=== PATIENT | male | born 1945 | race Caucasian/White ===

== ENCOUNTER 2021-06-15 16:44 | Inpatient (IN) ==
[2021-06-15] MEDS ORDERED: methylPREDNISolone 125 MG/2 ML VIAL IVP ONE (16:49)
[2021-06-15] MEDS ORDERED: 0.9 % Sodium Chloride 1,000 ML IVC ONE (16:49)
[2021-06-15] MEDS ORDERED: Ipratropium/Albuterol Neb 3 ML IH ONE (16:49)
[2021-06-15] MEDS ORDERED: Furosemide 20 MG/2 ML VIAL IVP ONE (17:37)
[2021-06-15 17:47] LABS: Basophils % 0.3 %; Eosinophils # 0.2 K/mcL (0.0-0.6); Eosinophils % 2.2 %; Hematocrit 42.6 % (37.5-50.1); Hemoglobin 12.2 g/dL (12.9-16.9); Immature Granulocytes % 1.2 % (0-4); Lymphocytes # 1.9 K/mcL (0.6-4.6); Lymphocytes % 21.5 %; Mean Corpuscular HGB Conc 28.6 g/dL (31.6-35.5); Mean Corpuscular Volume 104.7 fL (83.0-100.0); Mean Platelet Volume 10.3 fL (9.4-12.4); Monocytes # 0.7 K/mcL (0.0-1.3); Monocytes % 7.6 %; Neutrophils # 5.9 K/mcL (1.6-8.9); Platelet Count 143 K/mcL (140-400); Red Blood Count 4.07 M/mcL (4.19-5.50); Red Cell Distribution Width 12.7 % (11.5-14.5); Segmented Neutrophils % 67.2 %; White Blood Count 8.8 K/mcL (4.3-11.1)
[2021-06-15 18:20] LABS: BUN/Creatinine Ratio 32 (6-26); Blood Urea Nitrogen 23 mg/dL (8-23); Chloride 95 mEq/L (98-107); Glucose 108 mg/dL (70-105); Osmolality,Calculated 300 (280-300); Potassium 4.5 mEq/L (3.5-5.1); Sodium 143 mEq/L (136-145); eGFR For African Americans > 60 (> 60); eGFR For Non-African Americans > 60 (> 60)
[2021-06-15 18:25] LABS: VBG HCO3 49 mEq/L (21-27); VBG PCO2 123 mmHg (41-51); VBG PH 7.21 pH Units (7.32-7.42); VBG PO2 108 mmHg (25-50)
[2021-06-15 18:33] LABS: Troponin I 0.03 ng/mL (< 0.04)
[2021-06-15 19:33] LABS: Adenovirus Not Detected (Not Detect); Bordetella Pertussis Not Detected (Not Detect); Chlamydophila pneumoniae Not Detected (Not Detect); Coronavirus 229E Not Detected (Not Detect); Coronavirus HKU1 Not Detected (Not Detect); Coronavirus NL63 Not Detected (Not Detect); Coronavirus OC43 Not Detected (Not Detect); Human Metapneumovirus Not Detected (Not Detect); Human Rhinovirus/Enterovirus Not Detected (Not Detect); Influenza A Subtype 2009 H1 Not Detected (Not Detect); Influenza B Not Detected (Not Detect); Mycoplasma pneumoniae Not Detected (Not Detect); Parainfluenza Virus 1 Not Detected (Not Detect); Parainfluenza Virus 2 Not Detected (Not Detect); Parainfluenza Virus 3 Not Detected (Not Detect); Parainfluenza Virus 4 Not Detected (Not Detect); Respiratory Syncytial Virus Not Detected (Not Detect); SARS-CoV-2 Not Detected (Not Detect)
[2021-06-15] MEDS ORDERED: Melatonin 3 MG TABLET PO PRN (19:49)
[2021-06-15] MEDS ORDERED: Naloxone 0.4 MG/ML INJ IVP PRN (19:49)
[2021-06-15] MEDS ORDERED: *HR* Promethazine 25 MG/ML VIAL IM PRN (19:49)
[2021-06-15] MEDS ORDERED: Ondansetron 4 MG/2 ML VIAL IVP PRN (19:49)
[2021-06-15 19:52] LABS: Carbon Dioxide 45 mEq/L (23-29)
[2021-06-15] MEDS ORDERED: Ipratropium/Albuterol Neb 3 ML IH PRN (19:53)
[2021-06-15] MEDS: Budesonide/Formoterol 160/4.5 1 PUFF INH IH SCH (20:39)
[2021-06-15] MEDS: Ipratropium/Albuterol Neb 3 ML IH SCH ×2 (20:39→23:40)
[2021-06-15] MEDS: Doxycycline 100 MG CAPSULE PO SCH (23:12)
[2021-06-15] MEDS: MethylPREDNISolone 40 MG/ML VIAL IVP SCH (23:14)
[2021-06-16] MEDS: Ipratropium/Albuterol Neb 3 ML IH SCH ×6 (03:58→23:14)
[2021-06-16 04:59] LABS: Basophils % 0.1 %; Eosinophils % 0.1 %; Hematocrit 43.2 % (37.5-50.1); Hemoglobin 12.6 g/dL (12.9-16.9); Immature Granulocytes % 0.9 % (0-4); Lymphocytes # 0.4 K/mcL (0.6-4.6); Lymphocytes % 6.3 %; Mean Corpuscular HGB Conc 29.2 g/dL (31.6-35.5); Mean Corpuscular Hemoglobin 30.4 pg (28.0-33.3); Mean Corpuscular Volume 104.3 fL (83.0-100.0); Mean Platelet Volume 10.7 fL (9.4-12.4); Monocytes # 0.1 K/mcL (0.0-1.3); Neutrophils # 6.2 K/mcL (1.6-8.9); Platelet Count 137 K/mcL (140-400); Red Blood Count 4.14 M/mcL (4.19-5.50); Red Cell Distribution Width 12.5 % (11.5-14.5); Segmented Neutrophils % 91.6 %; White Blood Count 6.8 K/mcL (4.3-11.1)
[2021-06-16 05:10] LABS: VBG HCO3 57 mEq/L (21-27); VBG PCO2 121 mmHg (41-51); VBG PH 7.28 pH Units (7.32-7.42); VBG PO2 37 mmHg (25-50)
[2021-06-16 05:20] LABS: % Iron Saturation 38 % (20-55); Iron 112 mcg/dL (65-175); Transferrin 212 mg/dL (203-362)
[2021-06-16 05:39] LABS: BUN/Creatinine Ratio 35 (6-26); Blood Urea Nitrogen 24 mg/dL (8-23); Calcium 9.1 mg/dL (8.6-10.3); Carbon Dioxide > 45 mEq/L (23-29); Chloride 91 mEq/L (98-107); Ferritin 109 ng/mL (20-250); Glucose 160 mg/dL (70-105); Magnesium 1.8 mg/dL (1.6-2.6); Osmolality,Calculated 303 (280-300); Potassium 5.6 mEq/L (3.5-5.1); Sodium 143 mEq/L (136-145); eGFR For African Americans > 60 (> 60); eGFR For Non-African Americans > 60 (> 60)
[2021-06-16 05:44] LABS: Folate 20.6 ng/mL (3.0-16.0)
[2021-06-16] MEDS ORDERED: NON-FORMULARY MEDICATION 1 EACH EACH (Roflumilast [Daliresp] 500 MCG Tablet) PO SCH (09:00)
[2021-06-16] MEDS: Budesonide/Formoterol 160/4.5 1 PUFF INH IH SCH ×2 (09:02→20:01)
[2021-06-16] MEDS: MethylPREDNISolone 40 MG/ML VIAL IVP SCH ×2 (10:05→16:54)
[2021-06-16] MEDS: Doxycycline 100 MG CAPSULE PO SCH ×2 (10:05→20:24)
[2021-06-16] MEDS: Aspirin Enteric Coated 81 MG Tablet PO SCH (10:05)
[2021-06-16 12:42] LABS: VBG HCO3 53 mEq/L (21-27); VBG PCO2 103 mmHg (41-51); VBG PH 7.32 pH Units (7.32-7.42); VBG PO2 81 mmHg (25-50)
[2021-06-16] MEDS: *HR* Enoxaparin 40 MG/0.4 ML SYRINGE SQ SCH (13:07)
[2021-06-16] MEDS: Furosemide 40 MG/4 ML VIAL IVP SCH ×2 (13:07→20:25)
[2021-06-16] MEDS: Carbidopa/Levodopa 25/100 TABLET PO SCH (16:54)
[2021-06-17] MEDS: MethylPREDNISolone 40 MG/ML VIAL IVP SCH ×2 (01:05→09:38)
[2021-06-17] MEDS: Carbidopa/Levodopa 25/100 TABLET PO SCH ×4 (01:06→23:52)
[2021-06-17 03:29] LABS: Hematocrit 39.4 % (37.5-50.1); Hemoglobin 11.9 g/dL (12.9-16.9); Mean Corpuscular HGB Conc 30.2 g/dL (31.6-35.5); Mean Corpuscular Hemoglobin 30.9 pg (28.0-33.3); Mean Corpuscular Volume 102.3 fL (83.0-100.0); Mean Platelet Volume 10.7 fL (9.4-12.4); Platelet Count 143 K/mcL (140-400); Red Blood Count 3.85 M/mcL (4.19-5.50); Red Cell Distribution Width 12.4 % (11.5-14.5); White Blood Count 9.3 K/mcL (4.3-11.1)
[2021-06-17] MEDS: Ipratropium/Albuterol Neb 3 ML IH SCH ×5 (03:47→20:59)
[2021-06-17 03:54] LABS: BUN/Creatinine Ratio 34 (6-26); Blood Urea Nitrogen 32 mg/dL (8-23); Calcium 8.9 mg/dL (8.6-10.3); Carbon Dioxide > 45 mEq/L (23-29); Chloride 85 mEq/L (98-107); Glucose 134 mg/dL (70-105); Osmolality,Calculated 303 (280-300); Potassium 4.3 mEq/L (3.5-5.1); Sodium 142 mEq/L (136-145); eGFR For African Americans > 60 (> 60); eGFR For Non-African Americans > 60 (> 60)
[2021-06-17] MEDS: *HR* Enoxaparin 40 MG/0.4 ML SYRINGE SQ SCH (05:21)
[2021-06-17] MEDS: Budesonide/Formoterol 160/4.5 1 PUFF INH IH SCH ×2 (07:32→20:59)
[2021-06-17] MEDS: Aspirin Enteric Coated 81 MG Tablet PO SCH (09:38)
[2021-06-17] MEDS: Doxycycline 100 MG CAPSULE PO SCH ×2 (09:38→21:05)
[2021-06-17] MEDS: Furosemide 40 MG/4 ML VIAL IVP SCH (09:38)
[2021-06-17] MEDS: Metoprolol XL (24 HR) Succ 25 MG TAB.ER.24H PO SCH (12:26)
[2021-06-18] MEDS: Ipratropium/Albuterol Neb 3 ML IH SCH ×7 (00:29→23:52)
[2021-06-18] MEDS: Fluticasone Propionate Nasal 50 MCG/SPRAY BOTTLE NS SCH ×2 (00:35→09:16)
[2021-06-18 05:27] LABS: Hematocrit 40.9 % (37.5-50.1); Hemoglobin 12.2 g/dL (12.9-16.9); Mean Corpuscular HGB Conc 29.8 g/dL (31.6-35.5); Mean Corpuscular Hemoglobin 30.6 pg (28.0-33.3); Mean Corpuscular Volume 102.5 fL (83.0-100.0); Mean Platelet Volume 10.8 fL (9.4-12.4); Platelet Count 153 K/mcL (140-400); Red Blood Count 3.99 M/mcL (4.19-5.50); Red Cell Distribution Width 12.5 % (11.5-14.5); White Blood Count 9.5 K/mcL (4.3-11.1)
[2021-06-18] MEDS: *HR* Enoxaparin 40 MG/0.4 ML SYRINGE SQ SCH (05:39)
[2021-06-18 06:35] LABS: BUN/Creatinine Ratio 41 (6-26); Blood Urea Nitrogen 36 mg/dL (8-23); Calcium 9.1 mg/dL (8.6-10.3); Carbon Dioxide > 45 mEq/L (23-29); Chloride 87 mEq/L (98-107); Glucose 102 mg/dL (70-105); Osmolality,Calculated 305 (280-300); Potassium 4.1 mEq/L (3.5-5.1); Sodium 143 mEq/L (136-145); eGFR For African Americans > 60 (> 60); eGFR For Non-African Americans > 60 (> 60)
[2021-06-18] MEDS: Budesonide/Formoterol 160/4.5 1 PUFF INH IH SCH ×2 (07:55→20:57)
[2021-06-18] MEDS: predniSONE 20 MG TABLET PO SCH (09:11)
[2021-06-18] MEDS: Carbidopa/Levodopa 25/100 TABLET PO SCH ×2 (09:12→15:48)
[2021-06-18] MEDS: Furosemide 20 MG TABLET PO SCH (09:12)
[2021-06-18] MEDS: Doxycycline 100 MG CAPSULE PO SCH ×2 (09:12→22:10)
[2021-06-18] MEDS: Metoprolol XL (24 HR) Succ 25 MG TAB.ER.24H PO SCH (09:12)
[2021-06-18] MEDS: Aspirin Enteric Coated 81 MG Tablet PO SCH (09:12)
[2021-06-18] MEDS: *HR* LORazepam 0.5 MG TABLET PO PRN (16:26)
[2021-06-19] MEDS: Carbidopa/Levodopa 25/100 TABLET PO SCH ×3 (01:01→16:04)
[2021-06-19 02:43] LABS: Hemoglobin 13.2 g/dL (12.9-16.9); Mean Corpuscular HGB Conc 29.3 g/dL (31.6-35.5); Mean Corpuscular Hemoglobin 30.4 pg (28.0-33.3); Mean Corpuscular Volume 103.7 fL (83.0-100.0); Mean Platelet Volume 10.4 fL (9.4-12.4); Platelet Count 158 K/mcL (140-400); Red Blood Count 4.34 M/mcL (4.19-5.50); Red Cell Distribution Width 12.5 % (11.5-14.5); White Blood Count 8.6 K/mcL (4.3-11.1)
[2021-06-19 03:38] LABS: BUN/Creatinine Ratio 42 (6-26); Blood Urea Nitrogen 32 mg/dL (8-23); Calcium 9.3 mg/dL (8.6-10.3); Carbon Dioxide > 45 mEq/L (23-29); Chloride 88 mEq/L (98-107); Glucose 130 mg/dL (70-105); Osmolality,Calculated 303 (280-300); Potassium 4.7 mEq/L (3.5-5.1); Sodium 142 mEq/L (136-145); eGFR For African Americans > 60 (> 60); eGFR For Non-African Americans > 60 (> 60)
[2021-06-19] MEDS: Ipratropium/Albuterol Neb 3 ML IH SCH ×6 (04:18→23:26)
[2021-06-19] MEDS: *HR* Enoxaparin 40 MG/0.4 ML SYRINGE SQ SCH (05:02)
[2021-06-19] MEDS: Metoprolol XL (24 HR) Succ 25 MG TAB.ER.24H PO SCH (08:05)
[2021-06-19] MEDS: Furosemide 20 MG TABLET PO SCH (08:05)
[2021-06-19] MEDS: predniSONE 20 MG TABLET PO SCH (08:05)
[2021-06-19] MEDS: Aspirin Enteric Coated 81 MG Tablet PO SCH (08:06)
[2021-06-19] MEDS: Doxycycline 100 MG CAPSULE PO SCH ×2 (08:06→20:37)
[2021-06-19] MEDS: Budesonide/Formoterol 160/4.5 1 PUFF INH IH SCH ×2 (08:21→20:05)
[2021-06-19] MEDS: Fluticasone Propionate Nasal 50 MCG/SPRAY BOTTLE NS SCH (09:14)
[2021-06-19] MEDS: *HR* LORazepam 0.5 MG TABLET PO PRN (20:37)
[2021-06-20] MEDS: Carbidopa/Levodopa 25/100 TABLET PO SCH ×3 (00:23→16:29)
[2021-06-20] MEDS: Ipratropium/Albuterol Neb 3 ML IH SCH ×6 (03:41→23:23)
[2021-06-20] MEDS: *HR* LORazepam 0.5 MG TABLET PO PRN (04:45)
[2021-06-20] MEDS: *HR* Enoxaparin 40 MG/0.4 ML SYRINGE SQ SCH (06:56)
[2021-06-20] MEDS: Budesonide/Formoterol 160/4.5 1 PUFF INH IH SCH ×2 (07:43→19:21)
[2021-06-20] MEDS: Doxycycline 100 MG CAPSULE PO SCH ×2 (08:45→20:45)
[2021-06-20] MEDS: Metoprolol XL (24 HR) Succ 25 MG TAB.ER.24H PO SCH (08:46)
[2021-06-20] MEDS: Aspirin Enteric Coated 81 MG Tablet PO SCH (08:46)
[2021-06-20] MEDS: predniSONE 20 MG TABLET PO SCH (08:47)
[2021-06-20] MEDS: Fluticasone Propionate Nasal 50 MCG/SPRAY BOTTLE NS SCH (08:47)
[2021-06-20] MEDS: Furosemide 20 MG TABLET PO SCH (08:47)
[2021-06-20] MEDS ORDERED: *HR* LORazepam 2 MG/ML VIAL IVP ONE (12:34)
[2021-06-20] MEDS: MethylPREDNISolone 40 MG/ML VIAL IVP SCH (16:38)
[2021-06-20] MEDS: Piperacillin/Tazobactam 3.375 GM in 0.9 % Sodium Chloride Mini Bag 100 ML IVPB SCH (16:38)
[2021-06-20 16:48] LABS: ABG Base Excess 13 mEq/L (-2 to 3); ABG HCO3 43 mEq/L (21-27); ABG Oxygen Saturation 89 % (95-98); ABG PCO2 83 mmHg (35-45); ABG PH 7.32 pH Units (7.32-7.45); ABG PO2 65 mmHg (85-104); ABG TCO2 46 mEq/L (20-26)
[2021-06-21] MEDS: Carbidopa/Levodopa 25/100 TABLET PO SCH ×4 (00:26→23:15)
[2021-06-21] MEDS: MethylPREDNISolone 40 MG/ML VIAL IVP SCH ×4 (00:27→23:17)
[2021-06-21] MEDS: Piperacillin/Tazobactam 3.375 GM in 0.9 % Sodium Chloride Mini Bag 100 ML IVPB SCH ×4 (00:28→23:14)
[2021-06-21] MEDS: Ipratropium/Albuterol Neb 3 ML IH SCH ×5 (03:40→19:47)
[2021-06-21] MEDS: *HR* Enoxaparin 40 MG/0.4 ML SYRINGE SQ SCH (05:04)
[2021-06-21] MEDS: Budesonide/Formoterol 160/4.5 1 PUFF INH IH SCH ×2 (07:58→19:47)
[2021-06-21] MEDS: Haloperidol Lactate 5 MG/ML VIAL IVP PRN ×2 (09:15→15:57)
[2021-06-21] MEDS: Fluticasone Propionate Nasal 50 MCG/SPRAY BOTTLE NS SCH (09:35)
[2021-06-21] MEDS: Aspirin Enteric Coated 81 MG Tablet PO SCH (09:35)
[2021-06-21] MEDS: Doxycycline 100 MG CAPSULE PO SCH ×2 (09:35→22:27)
[2021-06-21] MEDS: Furosemide 20 MG TABLET PO SCH (09:36)
[2021-06-21] MEDS: Metoprolol XL (24 HR) Succ 25 MG TAB.ER.24H PO SCH (09:36)
[2021-06-21] MEDS: *HR* LORazepam 2 MG/ML VIAL IVP SCH (20:13)
[2021-06-22] MEDS: Ipratropium/Albuterol Neb 3 ML IH SCH ×6 (00:14→20:51)
[2021-06-22] MEDS: Piperacillin/Tazobactam 3.375 GM in 0.9 % Sodium Chloride Mini Bag 100 ML IVPB SCH ×3 (05:18→21:11)
[2021-06-22] MEDS: *HR* Enoxaparin 40 MG/0.4 ML SYRINGE SQ SCH (05:23)
[2021-06-22 06:25] LABS: VBG HCO3 60 mEq/L (21-27); VBG PCO2 66 mmHg (41-51); VBG PH 7.57 pH Units (7.32-7.42); VBG PO2 130 mmHg (25-50)
[2021-06-22 06:27] LABS: Mean Corpuscular Volume 105.4 fL (83.0-100.0); Red Cell Distribution Width 12.2 % (11.5-14.5)
[2021-06-22 06:29] LABS: Hematocrit 46.9 % (37.5-50.1); Hemoglobin 13.7 g/dL (12.9-16.9); Immature Platelets 6.5 % (1.1-6.1); Mean Corpuscular HGB Conc 29.2 g/dL (31.6-35.5); Mean Corpuscular Hemoglobin 30.8 pg (28.0-33.3); Mean Platelet Volume 10.9 fL (9.4-12.4); Red Blood Count 4.45 M/mcL (4.19-5.50); White Blood Count 10.3 K/mcL (4.3-11.1)
[2021-06-22 06:45] LABS: BUN/Creatinine Ratio 73 (6-26); Blood Urea Nitrogen 48 mg/dL (8-23); Carbon Dioxide > 45 mEq/L (23-29); Chloride 92 mEq/L (98-107); Glucose 128 mg/dL (70-105); Osmolality,Calculated 302 (280-300); Potassium 4.9 mEq/L (3.5-5.1); Sodium 139 mEq/L (136-145); eGFR For African Americans > 60 (> 60); eGFR For Non-African Americans > 60 (> 60)
[2021-06-22] MEDS ORDERED: acetaZOLAMIDE 250 MG in Water for inj. (sterile) 2.5 ML IVP ONE (07:17)
[2021-06-22] MEDS: Budesonide/Formoterol 160/4.5 1 PUFF INH IH SCH ×2 (07:49→20:51)
[2021-06-22] MEDS: Doxycycline 100 MG CAPSULE PO SCH (08:19)
[2021-06-22] MEDS: Aspirin Enteric Coated 81 MG Tablet PO SCH (08:19)
[2021-06-22] MEDS: Carbidopa/Levodopa 25/100 TABLET PO SCH ×3 (08:19→23:24)
[2021-06-22] MEDS: Furosemide 20 MG TABLET PO SCH (08:20)
[2021-06-22] MEDS: Metoprolol XL (24 HR) Succ 25 MG TAB.ER.24H PO SCH (08:20)
[2021-06-22] MEDS: Fluticasone Propionate Nasal 50 MCG/SPRAY BOTTLE NS SCH (08:20)
[2021-06-22] MEDS: *HR* LORazepam 2 MG/ML VIAL IVP SCH ×4 (08:28→22:16)
[2021-06-22] MEDS: MethylPREDNISolone 40 MG/ML VIAL IVP SCH ×2 (08:29→17:07)
[2021-06-22] MEDS: Haloperidol Lactate 5 MG/ML VIAL IVP PRN (09:53)
[2021-06-22] MEDS ORDERED: *HR* Midazolam HCl 5 MG/5 ML VIAL IVP ONE (11:42)
[2021-06-22] MEDS ORDERED: *HR* Succinylcholine 200 MG/10 ML VIAL IVP ONE (11:42)
[2021-06-22] MEDS ORDERED: *HR* Etomidate 20 MG/10 ML AMPUL IVP ONE (11:42)
[2021-06-22] MEDS: Furosemide 20 MG/2 ML VIAL IVP SCH (11:49)
[2021-06-22] MEDS: QUEtiapine Fumarate 25 MG TABLET PO SCH (21:10)
[2021-06-22 21:39] LABS: VBG HCO3 61 mEq/L (21-27); VBG PCO2 131 mmHg (41-51); VBG PH 7.28 pH Units (7.32-7.42); VBG PO2 52 mmHg (25-50)
[2021-06-22] MEDS ORDERED: Furosemide 40 MG/4 ML VIAL IVP ONE (21:47)
[2021-06-22] MEDS ORDERED: *HR* Metoprolol 5 MG/5 ML VIAL IVP ONE (22:28)
[2021-06-22] MEDS ORDERED: Morphine Sulfate 2 MG/ML SYRINGE IVP ONE (22:55)
[2021-06-23] MEDS: Ipratropium/Albuterol Neb 3 ML IH SCH ×7 (00:38→23:57)
[2021-06-23] MEDS: Norepinephrine 4 MG/254 ML IV.SOLN IVC SCH ×3 (01:03→21:47)
[2021-06-23] MEDS: FentaNYL (PF) 1,000 MCG/100 ML IV.SOLN IVC SCH ×2 (01:04→17:37)
[2021-06-23] MEDS: MethylPREDNISolone 40 MG/ML VIAL IVP SCH ×4 (02:13→23:49)
[2021-06-23 03:22] LABS: Blood Gas VT 420 cc; Mixed Venous Blood pCO2 80 mmHg (44-46); Mixed Venous Blood pH 7.41 pH Units (7.34-7.36); Mixed Venous Blood pO2 26 mmHg (35-45)
[2021-06-23 03:59] LABS: ABG Base Excess 26 mEq/L (-2 to 3); ABG HCO3 54 mEq/L (21-27); ABG Oxygen Saturation 67 % (95-98); ABG PCO2 63 mmHg (35-45); ABG PH 7.54 pH Units (7.32-7.45); ABG PO2 33 mmHg (85-104); ABG TCO2 > 50 mEq/L (20-26); Blood Gas Modality ASSIST CONTROL; Blood Gas VT 420 cc
[2021-06-23 05:26] LABS: ABG Base Excess 23 mEq/L (-2 to 3); ABG HCO3 49 mEq/L (21-27); ABG Oxygen Saturation 100 % (95-98); ABG PCO2 55 mmHg (35-45); ABG PH 7.56 pH Units (7.32-7.45); ABG PO2 517 mmHg (85-104); ABG TCO2 > 50 mEq/L (20-26); Blood Gas VT 450 cc
[2021-06-23] MEDS: *HR* Enoxaparin 40 MG/0.4 ML SYRINGE SQ SCH (05:34)
[2021-06-23] MEDS: Piperacillin/Tazobactam 3.375 GM in 0.9 % Sodium Chloride Mini Bag 100 ML IVPB SCH ×3 (05:34→22:39)
[2021-06-23] MEDS: Budesonide/Formoterol 160/4.5 1 PUFF INH IH SCH ×2 (07:30→23:58)
[2021-06-23] MEDS: Carbidopa/Levodopa 25/100 TABLET PO SCH ×2 (09:44→15:47)
[2021-06-23] MEDS: *HR* LORazepam 2 MG/ML VIAL IVP SCH ×3 (09:44→20:22)
[2021-06-23] MEDS: Aspirin Enteric Coated 81 MG Tablet PO SCH (09:45)
[2021-06-23] MEDS: Furosemide 20 MG/2 ML VIAL IVP SCH (09:45)
[2021-06-23] MEDS: Metoprolol XL (24 HR) Succ 25 MG TAB.ER.24H PO SCH (09:46)
[2021-06-23] MEDS ORDERED: Albuterol 2.5 MG/3 ML NEBULIZER IH PRN (09:59)
[2021-06-23 10:43] LABS: ABG Base Excess 20 mEq/L (-2 to 3); ABG HCO3 48 mEq/L (21-27); ABG Oxygen Saturation 91 % (95-98); ABG PCO2 71 mmHg (35-45); ABG PH 7.44 pH Units (7.32-7.45); ABG PO2 62 mmHg (85-104); ABG TCO2 > 50 mEq/L (20-26); Blood Gas Modality ASSIST CONTROL; Blood Gas VT 450 cc
[2021-06-23] MEDS ORDERED: Artificial Tears SOLN 15 ML BOTTLE BOTH EYES PRN (10:47)
[2021-06-23] MEDS: Artificial Tears SOLN 15 ML BOTTLE BOTH EYES SCH ×3 (11:51→20:24)
[2021-06-23] MEDS: Pantoprazole 40 MG VIAL IVP SCH (11:51)
[2021-06-23] MEDS: Chlorhexidine Rinse 15 ML MOUTHWASH MM SCH ×2 (11:51→20:29)
[2021-06-23] MEDS: Fluticasone Propionate Nasal 50 MCG/SPRAY BOTTLE NS SCH (13:07)
[2021-06-23] MEDS ORDERED: Perflutren Lipid Microsphere 1.3 ML in 0.9 % Sodium Chloride 8.7 ML IVP PRN (15:26)
[2021-06-23] MEDS: Doxycycline 100 MG in 0.9 % Sodium Chloride Mini Bag 100 ML IVPB SCH (17:37)
[2021-06-23 18:19] LABS: Hematocrit 40.4 % (37.5-50.1); Mean Corpuscular Hemoglobin 30.4 pg (28.0-33.3); Mean Corpuscular Volume 101.5 fL (83.0-100.0); Mean Platelet Volume 11.4 fL (9.4-12.4); Platelet Count 116 K/mcL (140-400); Red Blood Count 3.98 M/mcL (4.19-5.50); Red Cell Distribution Width 12.7 % (11.5-14.5); White Blood Count 10.4 K/mcL (4.3-11.1)
[2021-06-23 18:21] LABS: Hemoglobin 12.1 g/dL (12.9-16.9)
[2021-06-23 19:56] LABS: Alanine Aminotransferase < 3 Units/L (7-52); Albumin 3.2 g/dL (3.5-5.7); Albumin/Globulin Ratio 1.7 (1.1-2.2); Alkaline Phosphatase 74 Units/L (34-104); Aspartate Amino Transferase 14 Units/L (13-39); BUN/Creatinine Ratio 62 (6-26); Blood Urea Nitrogen 57 mg/dL (8-23); Calcium 8.7 mg/dL (8.6-10.3); Carbon Dioxide > 45 mEq/L (23-29); Chloride 88 mEq/L (98-107); Globulin 1.9 g/dL (2.4-3.5); Glucose 194 mg/dL (70-105); Osmolality,Calculated 319 (280-300); Potassium 3.8 mEq/L (3.5-5.1); Sodium 144 mEq/L (136-145); Total Protein 5.1 g/dL (6.4-8.9); eGFR For African Americans > 60 (> 60); eGFR For Non-African Americans > 60 (> 60)
[2021-06-23] MEDS: QUEtiapine Fumarate 25 MG TABLET PO SCH (20:29)
[2021-06-24] MEDS: Carbidopa/Levodopa 25/100 TABLET PO SCH ×4 (00:08→23:51)
[2021-06-24] MEDS: Norepinephrine 4 MG/254 ML IV.SOLN IVC SCH ×3 (02:41→16:24)
[2021-06-24] MEDS: Ipratropium/Albuterol Neb 3 ML IH SCH ×6 (03:30→23:29)
[2021-06-24 03:47] LABS: Basophils % 0.1 %; Hematocrit 39.3 % (37.5-50.1); Hemoglobin 11.9 g/dL (12.9-16.9); Immature Granulocytes % 0.7 % (0-4); Lymphocytes # 0.3 K/mcL (0.6-4.6); Lymphocytes % 2.7 %; Mean Corpuscular HGB Conc 30.3 g/dL (31.6-35.5); Mean Corpuscular Hemoglobin 30.3 pg (28.0-33.3); Mean Platelet Volume 11.3 fL (9.4-12.4); Monocytes # 0.4 K/mcL (0.0-1.3); Neutrophils # 9.6 K/mcL (1.6-8.9); Platelet Count 116 K/mcL (140-400); Red Blood Count 3.93 M/mcL (4.19-5.50); Segmented Neutrophils % 92.5 %; White Blood Count 10.3 K/mcL (4.3-11.1)
[2021-06-24 04:14] LABS: Alanine Aminotransferase 3 Units/L (7-52); Albumin 3.1 g/dL (3.5-5.7); Albumin/Globulin Ratio 1.6 (1.1-2.2); Alkaline Phosphatase 66 Units/L (34-104); Aspartate Amino Transferase 14 Units/L (13-39); BUN/Creatinine Ratio 74 (6-26); Bilirubin,Total 1.1 mg/dL (0.3-1.0); Blood Urea Nitrogen 56 mg/dL (8-23); Calcium 8.6 mg/dL (8.6-10.3); Carbon Dioxide > 45 mEq/L (23-29); Chloride 91 mEq/L (98-107); Glucose 172 mg/dL (70-105); Magnesium 2.2 mg/dL (1.6-2.6); Osmolality,Calculated 318 (280-300); Potassium 3.6 mEq/L (3.5-5.1); Sodium 144 mEq/L (136-145); Total Protein 5.1 g/dL (6.4-8.9); eGFR For African Americans > 60 (> 60); eGFR For Non-African Americans > 60 (> 60)
[2021-06-24 04:56] LABS: ABG Base Excess 22 mEq/L (-2 to 3); ABG HCO3 48 mEq/L (21-27); ABG Oxygen Saturation 86 % (95-98); ABG PCO2 55 mmHg (35-45); ABG PH 7.54 pH Units (7.32-7.45); ABG PO2 48 mmHg (85-104); ABG TCO2 49 mEq/L (20-26); Blood Gas Modality ASSIST CONTROL; Blood Gas VT 450 cc
[2021-06-24] MEDS: Piperacillin/Tazobactam 3.375 GM in 0.9 % Sodium Chloride Mini Bag 100 ML IVPB SCH ×3 (05:55→22:31)
[2021-06-24] MEDS: Doxycycline 100 MG in 0.9 % Sodium Chloride Mini Bag 100 ML IVPB SCH ×2 (05:56→18:23)
[2021-06-24] MEDS: *HR* Enoxaparin 40 MG/0.4 ML SYRINGE SQ SCH (06:55)
[2021-06-24] MEDS: Budesonide/Formoterol 160/4.5 1 PUFF INH IH SCH ×2 (08:09→20:11)
[2021-06-24] MEDS: Pantoprazole 40 MG VIAL IVP SCH (10:21)
[2021-06-24] MEDS: Chlorhexidine Rinse 15 ML MOUTHWASH MM SCH ×2 (10:21→20:02)
[2021-06-24] MEDS: Furosemide 20 MG/2 ML VIAL IVP SCH (10:22)
[2021-06-24] MEDS: *HR* LORazepam 2 MG/ML VIAL IVP SCH ×3 (10:22→20:03)
[2021-06-24] MEDS: MethylPREDNISolone 40 MG/ML VIAL IVP SCH ×3 (10:22→23:51)
[2021-06-24] MEDS: Aspirin Enteric Coated 81 MG Tablet PO SCH (10:23)
[2021-06-24] MEDS: Fluticasone Propionate Nasal 50 MCG/SPRAY BOTTLE NS SCH (10:23)
[2021-06-24] MEDS: Artificial Tears SOLN 15 ML BOTTLE BOTH EYES SCH ×4 (10:23→20:02)
[2021-06-24] MEDS: FentaNYL (PF) 1,000 MCG/100 ML IV.SOLN IVC SCH ×2 (16:23→16:47)
[2021-06-24] MEDS: QUEtiapine Fumarate 25 MG TABLET PO SCH (20:02)
[2021-06-25] MEDS: Norepinephrine 4 MG/254 ML IV.SOLN IVC SCH ×3 (00:01→21:45)
[2021-06-25] MEDS: Ipratropium/Albuterol Neb 3 ML IH SCH ×6 (03:22→23:56)
[2021-06-25 03:45] LABS: VBG Ionized Calcium 1.15 mmol/L (1.15-1.35)
[2021-06-25 03:47] LABS: Basophils % 0.2 %; Hematocrit 39.6 % (37.5-50.1); Hemoglobin 11.8 g/dL (12.9-16.9); Immature Granulocytes % 1.5 % (0-4); Lymphocytes # 0.3 K/mcL (0.6-4.6); Lymphocytes % 3.8 %; Mean Corpuscular HGB Conc 29.8 g/dL (31.6-35.5); Mean Corpuscular Hemoglobin 30.2 pg (28.0-33.3); Mean Corpuscular Volume 101.3 fL (83.0-100.0); Mean Platelet Volume 11.5 fL (9.4-12.4); Monocytes # 0.4 K/mcL (0.0-1.3); Neutrophils # 8.1 K/mcL (1.6-8.9); Platelet Count 107 K/mcL (140-400); Red Blood Count 3.91 M/mcL (4.19-5.50); Red Cell Distribution Width 13.2 % (11.5-14.5); Segmented Neutrophils % 90.5 %; White Blood Count 8.9 K/mcL (4.3-11.1)
[2021-06-25 04:10] LABS: BUN/Creatinine Ratio 80 (6-26); Blood Urea Nitrogen 49 mg/dL (8-23); Calcium 8.6 mg/dL (8.6-10.3); Carbon Dioxide > 45 mEq/L (23-29); Chloride 93 mEq/L (98-107); Glucose 191 mg/dL (70-105); Magnesium 2.2 mg/dL (1.6-2.6); Osmolality,Calculated 316 (280-300); Potassium 3.5 mEq/L (3.5-5.1); Sodium 144 mEq/L (136-145); eGFR For African Americans > 60 (> 60); eGFR For Non-African Americans > 60 (> 60)
[2021-06-25 04:17] LABS: ABG Base Excess 22 mEq/L (-2 to 3); ABG HCO3 53 mEq/L (21-27); ABG Oxygen Saturation 90 % (95-98); ABG PCO2 92 mmHg (35-45); ABG PH 7.37 pH Units (7.32-7.45); ABG PO2 66 mmHg (85-104); ABG TCO2 > 50 mEq/L (20-26); Blood Gas VT 450 cc
[2021-06-25] MEDS: Piperacillin/Tazobactam 3.375 GM in 0.9 % Sodium Chloride Mini Bag 100 ML IVPB SCH ×3 (05:26→22:44)
[2021-06-25] MEDS: Doxycycline 100 MG in 0.9 % Sodium Chloride Mini Bag 100 ML IVPB SCH ×2 (05:26→18:00)
[2021-06-25] MEDS: *HR* Enoxaparin 40 MG/0.4 ML SYRINGE SQ SCH (05:27)
[2021-06-25] MEDS: Budesonide/Formoterol 160/4.5 1 PUFF INH IH SCH ×2 (07:47→19:49)
[2021-06-25] MEDS: Carbidopa/Levodopa 25/100 TABLET PO SCH ×3 (07:59→23:48)
[2021-06-25] MEDS: Aspirin Enteric Coated 81 MG Tablet PO SCH (07:59)
[2021-06-25] MEDS: *HR* LORazepam 2 MG/ML VIAL IVP SCH ×3 (08:00→19:37)
[2021-06-25] MEDS: Furosemide 20 MG/2 ML VIAL IVP SCH (08:00)
[2021-06-25] MEDS: Artificial Tears SOLN 15 ML BOTTLE BOTH EYES SCH ×4 (08:00→19:38)
[2021-06-25] MEDS: Pantoprazole 40 MG VIAL IVP SCH (08:00)
[2021-06-25] MEDS: Chlorhexidine Rinse 15 ML MOUTHWASH MM SCH ×2 (08:00→19:38)
[2021-06-25] MEDS: MethylPREDNISolone 40 MG/ML VIAL IVP SCH ×3 (08:01→23:48)
[2021-06-25] MEDS: Fluticasone Propionate Nasal 50 MCG/SPRAY BOTTLE NS SCH (09:22)
[2021-06-25] MEDS: Docusate Oral Soln 100 MG/10 ML UDC GTUBE SCH (19:38)
[2021-06-25] MEDS: QUEtiapine Fumarate 25 MG TABLET PO SCH (19:38)
[2021-06-25] MEDS: FentaNYL (PF) 1,000 MCG/100 ML IV.SOLN IVC SCH (20:23)
[2021-06-26 03:52] LABS: VBG Ionized Calcium 1.19 mmol/L (1.15-1.35)
[2021-06-26] MEDS: Ipratropium/Albuterol Neb 3 ML IH SCH ×5 (04:01→20:25)
[2021-06-26 04:02] LABS: Basophils % 0.2 %; Hematocrit 39.5 % (37.5-50.1); Hemoglobin 11.5 g/dL (12.9-16.9); Immature Granulocytes % 1.1 % (0-4); Lymphocytes # 0.2 K/mcL (0.6-4.6); Lymphocytes % 1.9 %; Mean Corpuscular HGB Conc 29.1 g/dL (31.6-35.5); Mean Corpuscular Hemoglobin 29.6 pg (28.0-33.3); Mean Corpuscular Volume 101.8 fL (83.0-100.0); Mean Platelet Volume 11.7 fL (9.4-12.4); Monocytes # 0.5 K/mcL (0.0-1.3); Monocytes % 4.3 %; Neutrophils # 11.4 K/mcL (1.6-8.9); Platelet Count 119 K/mcL (140-400); Red Blood Count 3.88 M/mcL (4.19-5.50); Red Cell Distribution Width 13.1 % (11.5-14.5); Segmented Neutrophils % 92.5 %; White Blood Count 12.4 K/mcL (4.3-11.1)
[2021-06-26 04:34] LABS: BUN/Creatinine Ratio 74 (6-26); Blood Urea Nitrogen 52 mg/dL (8-23); Calcium 8.7 mg/dL (8.6-10.3); Carbon Dioxide > 45 mEq/L (23-29); Chloride 94 mEq/L (98-107); Glucose 239 mg/dL (70-105); Magnesium 2.2 mg/dL (1.6-2.6); Osmolality,Calculated 322 (280-300); Potassium 3.8 mEq/L (3.5-5.1); Sodium 145 mEq/L (136-145); eGFR For African Americans > 60 (> 60); eGFR For Non-African Americans > 60 (> 60)
[2021-06-26 04:37] LABS: ABG Base Excess 22 mEq/L (-2 to 3); ABG HCO3 53 mEq/L (21-27); ABG Oxygen Saturation 91 % (95-98); ABG PCO2 90 mmHg (35-45); ABG PH 7.38 pH Units (7.32-7.45); ABG PO2 68 mmHg (85-104); ABG TCO2 > 50 mEq/L (20-26); Blood Gas Modality ASSIST CONTROL; Blood Gas VT 450 cc
[2021-06-26] MEDS: Norepinephrine 4 MG/254 ML IV.SOLN IVC SCH (04:48)
[2021-06-26] MEDS: Doxycycline 100 MG in 0.9 % Sodium Chloride Mini Bag 100 ML IVPB SCH ×2 (05:19→17:37)
[2021-06-26] MEDS: FentaNYL (PF) 1,000 MCG/100 ML IV.SOLN IVC SCH (05:20)
[2021-06-26] MEDS: Piperacillin/Tazobactam 3.375 GM in 0.9 % Sodium Chloride Mini Bag 100 ML IVPB SCH ×3 (05:20→22:58)
[2021-06-26] MEDS: *HR* Enoxaparin 40 MG/0.4 ML SYRINGE SQ SCH (05:21)
[2021-06-26] MEDS: Budesonide/Formoterol 160/4.5 1 PUFF INH IH SCH ×2 (07:36→20:25)
[2021-06-26] MEDS: MethylPREDNISolone 40 MG/ML VIAL IVP SCH ×3 (07:39→22:58)
[2021-06-26] MEDS: Carbidopa/Levodopa 25/100 TABLET PO SCH ×3 (07:39→22:58)
[2021-06-26] MEDS: Artificial Tears SOLN 15 ML BOTTLE BOTH EYES SCH ×4 (07:40→19:52)
[2021-06-26] MEDS: Docusate Oral Soln 100 MG/10 ML UDC GTUBE SCH (07:40)
[2021-06-26] MEDS: Chlorhexidine Rinse 15 ML MOUTHWASH MM SCH ×2 (07:40→19:52)
[2021-06-26] MEDS: Pantoprazole 40 MG VIAL IVP SCH (07:41)
[2021-06-26] MEDS: Furosemide 20 MG/2 ML VIAL IVP SCH (07:41)
[2021-06-26] MEDS ORDERED: Aspirin 81 MG TAB.CHEW GTUBE SCH (09:00)
[2021-06-26] MEDS: Dexmedetomidine HCl 400 MCG/100 ML MLS IVC SCH (10:33)
[2021-06-26] MEDS: Insulin LISPRO 300 UNITS/3 ML VIAL SUBQ SCH ×2 (13:05→17:55)
[2021-06-26] MEDS: *HR* LORazepam 2 MG/ML VIAL IVP SCH (19:51)
[2021-06-26] MEDS: QUEtiapine Fumarate 25 MG TABLET PO SCH (19:53)
[2021-06-27] MEDS: Ipratropium/Albuterol Neb 3 ML IH SCH ×7 (00:02→23:51)
[2021-06-27] MEDS: Dexmedetomidine HCl 400 MCG/100 ML MLS IVC SCH (04:25)
[2021-06-27] MEDS: Insulin LISPRO 300 UNITS/3 ML VIAL SUBQ SCH ×4 (04:25→17:15)
[2021-06-27 05:24] LABS: BUN/Creatinine Ratio 65 (6-26); Blood Urea Nitrogen 52 mg/dL (8-23); Calcium 8.8 mg/dL (8.6-10.3); Chloride 96 mEq/L (98-107); Glucose 119 mg/dL (70-105); Magnesium 2.1 mg/dL (1.6-2.6); Osmolality,Calculated 321 (280-300); Potassium 4.4 mEq/L (3.5-5.1); Sodium 148 mEq/L (136-145); eGFR For African Americans > 60 (> 60); eGFR For Non-African Americans > 60 (> 60)
[2021-06-27 05:26] LABS: Carbon Dioxide > 45 mEq/L (23-29); Hematocrit 41.8 % (37.5-50.1); Hemoglobin 12.2 g/dL (12.9-16.9); Mean Corpuscular HGB Conc 29.2 g/dL (31.6-35.5); Mean Corpuscular Hemoglobin 31.3 pg (28.0-33.3); Mean Corpuscular Volume 107.2 fL (83.0-100.0); Mean Platelet Volume 11.4 fL (9.4-12.4); Platelet Count 138 K/mcL (140-400); Red Cell Distribution Width 12.6 % (11.5-14.5); White Blood Count 14.8 K/mcL (4.3-11.1)
[2021-06-27 05:27] LABS: Basophils % 0.3 %; Lymphocytes # 0.3 K/mcL (0.6-4.6); Lymphocytes % 1.9 %; Monocytes # 0.7 K/mcL (0.0-1.3); Monocytes % 4.9 %; Neutrophils # 13.5 K/mcL (1.6-8.9); Segmented Neutrophils % 90.9 %
[2021-06-27] MEDS: Doxycycline 100 MG in 0.9 % Sodium Chloride Mini Bag 100 ML IVPB SCH ×2 (05:36→17:25)
[2021-06-27] MEDS: Piperacillin/Tazobactam 3.375 GM in 0.9 % Sodium Chloride Mini Bag 100 ML IVPB SCH ×3 (05:37→20:19)
[2021-06-27] MEDS: *HR* Enoxaparin 40 MG/0.4 ML SYRINGE SQ SCH (05:39)
[2021-06-27] MEDS: Budesonide/Formoterol 160/4.5 1 PUFF INH IH SCH ×2 (08:00→20:14)
[2021-06-27] MEDS: *HR* LORazepam 2 MG/ML VIAL IVP SCH (08:36)
[2021-06-27] MEDS: Aspirin 81 MG TAB.CHEW PO SCH (08:37)
[2021-06-27] MEDS: Furosemide 20 MG/2 ML VIAL IVP SCH (08:37)
[2021-06-27] MEDS: Chlorhexidine Rinse 15 ML MOUTHWASH MM SCH (08:37)
[2021-06-27] MEDS: Carbidopa/Levodopa 25/100 TABLET PO SCH ×3 (08:37→22:33)
[2021-06-27] MEDS: Pantoprazole 40 MG VIAL IVP SCH (08:38)
[2021-06-27] MEDS: Sennosides 8.6 MG TABLET PO SCH (08:38)
[2021-06-27] MEDS: MethylPREDNISolone 40 MG/ML VIAL IVP SCH ×2 (08:38→20:19)
[2021-06-27] MEDS ORDERED: Morphine Sulfate Oral CONC 10 MG/0.5 ML ORAL.SYG SL PRN (12:54)
[2021-06-27] MEDS: Scopolamine Patch 1.5 MG PATCH.TD72 TD SCH (13:15)
[2021-06-27] MEDS: QUEtiapine Fumarate 25 MG TABLET PO SCH (20:45)
[2021-06-28] MEDS: Insulin LISPRO 300 UNITS/3 ML VIAL SUBQ SCH ×5 (00:12→23:04)
[2021-06-28] MEDS: Ipratropium/Albuterol Neb 3 ML IH SCH ×5 (04:12→20:23)
[2021-06-28 04:13] LABS: Hemoglobin 11.8 g/dL (12.9-16.9)
[2021-06-28 04:14] LABS: Mean Corpuscular HGB Conc 28.8 g/dL (31.6-35.5); Mean Corpuscular Hemoglobin 31.1 pg (28.0-33.3); Mean Corpuscular Volume 107.9 fL (83.0-100.0); Mean Platelet Volume 11.5 fL (9.4-12.4); Platelet Count 113 K/mcL (140-400); Red Cell Distribution Width 12.7 % (11.5-14.5); White Blood Count 15.9 K/mcL (4.3-11.1)
[2021-06-28 04:25] LABS: BUN/Creatinine Ratio 77 (6-26); Blood Urea Nitrogen 43 mg/dL (8-23); Carbon Dioxide > 45 mEq/L (23-29); Chloride 95 mEq/L (98-107); Glucose 126 mg/dL (70-105); Osmolality,Calculated 324 (280-300); Potassium 4.3 mEq/L (3.5-5.1); Sodium 151 mEq/L (136-145); eGFR For African Americans > 60 (> 60); eGFR For Non-African Americans > 60 (> 60)
[2021-06-28] MEDS: Piperacillin/Tazobactam 3.375 GM in 0.9 % Sodium Chloride Mini Bag 100 ML IVPB SCH ×3 (04:41→21:20)
[2021-06-28] MEDS: Doxycycline 100 MG in 0.9 % Sodium Chloride Mini Bag 100 ML IVPB SCH ×2 (04:43→17:26)
[2021-06-28] MEDS: *HR* Enoxaparin 40 MG/0.4 ML SYRINGE SQ SCH (04:53)
[2021-06-28] MEDS: Budesonide/Formoterol 160/4.5 1 PUFF INH IH SCH ×2 (07:34→20:23)
[2021-06-28] MEDS: Sennosides 8.6 MG TABLET PO SCH (08:28)
[2021-06-28] MEDS: Furosemide 20 MG/2 ML VIAL IVP SCH ×2 (08:28→21:16)
[2021-06-28] MEDS: Pantoprazole 40 MG VIAL IVP SCH (08:28)
[2021-06-28] MEDS: Carbidopa/Levodopa 25/100 TABLET PO SCH ×3 (08:28→22:58)
[2021-06-28] MEDS: Aspirin 81 MG TAB.CHEW PO SCH (08:28)
[2021-06-28] MEDS: MethylPREDNISolone 40 MG/ML VIAL IVP SCH ×2 (08:29→21:18)
[2021-06-28] MEDS ORDERED: D5% in Water 1,000 ML IVC SCH (15:45)
[2021-06-28] MEDS: Nystatin SUSP 5 ML UD.LIQ PO SCH ×2 (17:26→21:18)
[2021-06-28] MEDS: QUEtiapine Fumarate 25 MG TABLET PO SCH (21:18)
[2021-06-29] MEDS: Ipratropium/Albuterol Neb 3 ML IH SCH ×6 (00:10→20:49)
[2021-06-29 01:12] LABS: White Blood Count 13.6 K/mcL (4.3-11.1)
[2021-06-29 01:13] LABS: Hematocrit 40.8 % (37.5-50.1); Hemoglobin 11.8 g/dL (12.9-16.9); Mean Corpuscular HGB Conc 28.9 g/dL (31.6-35.5); Mean Corpuscular Volume 107.1 fL (83.0-100.0); Mean Platelet Volume 11.6 fL (9.4-12.4); Platelet Count 126 K/mcL (140-400); Red Blood Count 3.81 M/mcL (4.19-5.50); Red Cell Distribution Width 12.5 % (11.5-14.5)
[2021-06-29 01:54] LABS: BUN/Creatinine Ratio 67 (6-26); Blood Urea Nitrogen 40 mg/dL (8-23); Calcium 9.2 mg/dL (8.6-10.3); Carbon Dioxide < 45 mEq/L (23-29); Chloride 85 mEq/L (98-107); Glucose 200 mg/dL (70-105); Osmolality,Calculated 319 (280-300); Potassium 4.1 mEq/L (3.5-5.1); Sodium 147 mEq/L (136-145); eGFR For African Americans > 60 (> 60); eGFR For Non-African Americans > 60 (> 60)
[2021-06-29] MEDS: Doxycycline 100 MG in 0.9 % Sodium Chloride Mini Bag 100 ML IVPB SCH ×2 (05:23→18:03)
[2021-06-29] MEDS: Piperacillin/Tazobactam 3.375 GM in 0.9 % Sodium Chloride Mini Bag 100 ML IVPB SCH ×3 (05:23→20:49)
[2021-06-29] MEDS: *HR* Enoxaparin 40 MG/0.4 ML SYRINGE SQ SCH (05:24)
[2021-06-29] MEDS: Insulin LISPRO 300 UNITS/3 ML VIAL SUBQ SCH ×4 (05:24→19:40)
[2021-06-29] MEDS: Budesonide/Formoterol 160/4.5 1 PUFF INH IH SCH ×2 (07:40→20:49)
[2021-06-29] MEDS: Furosemide 20 MG/2 ML VIAL IVP SCH ×2 (11:19→18:03)
[2021-06-29] MEDS: MethylPREDNISolone 40 MG/ML VIAL IVP SCH ×2 (11:20→20:50)
[2021-06-29] MEDS: Pantoprazole 40 MG VIAL IVP SCH (11:21)
[2021-06-29] MEDS: Sennosides 8.6 MG TABLET PO SCH (11:21)
[2021-06-29] MEDS: Nystatin SUSP 5 ML UD.LIQ PO SCH ×4 (11:21→20:50)
[2021-06-29] MEDS: Aspirin 81 MG TAB.CHEW PO SCH (11:21)
[2021-06-29] MEDS: Carbidopa/Levodopa 25/100 TABLET PO SCH ×3 (11:21→23:04)
[2021-06-29] MEDS ORDERED: *HR* Dextrose 50 % in Water (Syg) 50 ML SYRINGE IVP PRN (19:10)
[2021-06-29] MEDS ORDERED: D5% in Water 1,000 ML IVC PRN (19:10)
[2021-06-29] MEDS ORDERED: Dextrose Gel 15 GM/37.5 ML TUBE PO PRN ×2 (19:10)
[2021-06-29] MEDS: QUEtiapine Fumarate 25 MG TABLET PO SCH (20:50)
[2021-06-29] MEDS: Haloperidol Lactate 5 MG/ML VIAL IVP PRN (21:36)
[2021-06-29] MEDS ORDERED: *HR* LORazepam 2 MG/ML VIAL IVP ONE (22:56)
[2021-06-29] MEDS: Melatonin 3 MG TABLET PO SCH (23:04)
[2021-06-30 01:00] LABS: Hematocrit 40.1 % (37.5-50.1); Mean Corpuscular HGB Conc 29.9 g/dL (31.6-35.5); Mean Corpuscular Hemoglobin 30.5 pg (28.0-33.3); Mean Corpuscular Volume 101.8 fL (83.0-100.0); Mean Platelet Volume 11.2 fL (9.4-12.4); Platelet Count 149 K/mcL (140-400); Red Blood Count 3.94 M/mcL (4.19-5.50); Red Cell Distribution Width 12.2 % (11.5-14.5); White Blood Count 13.4 K/mcL (4.3-11.1)
[2021-06-30 01:28] LABS: BUN/Creatinine Ratio 57 (6-26); Blood Urea Nitrogen 36 mg/dL (8-23); Calcium 9.4 mg/dL (8.6-10.3); Carbon Dioxide > 45 mEq/L (23-29); Chloride 81 mEq/L (98-107); Glucose 154 mg/dL (70-105); Osmolality,Calculated 307 (280-300); Potassium 4.1 mEq/L (3.5-5.1); Sodium 143 mEq/L (136-145); eGFR For African Americans > 60 (> 60); eGFR For Non-African Americans > 60 (> 60)
[2021-06-30] MEDS: Ipratropium/Albuterol Neb 3 ML IH SCH ×7 (04:09→23:19)
[2021-06-30] MEDS: Doxycycline 100 MG in 0.9 % Sodium Chloride Mini Bag 100 ML IVPB SCH ×2 (05:11→18:21)
[2021-06-30] MEDS: Piperacillin/Tazobactam 3.375 GM in 0.9 % Sodium Chloride Mini Bag 100 ML IVPB SCH ×3 (05:11→22:42)
[2021-06-30] MEDS: *HR* Enoxaparin 40 MG/0.4 ML SYRINGE SQ SCH (05:12)
[2021-06-30] MEDS: Budesonide/Formoterol 160/4.5 1 PUFF INH IH SCH ×2 (07:49→19:44)
[2021-06-30] MEDS: Furosemide 20 MG/2 ML VIAL IVP SCH (08:32)
[2021-06-30] MEDS: Aspirin 81 MG TAB.CHEW PO SCH (08:32)
[2021-06-30] MEDS: Carbidopa/Levodopa 25/100 TABLET PO SCH ×3 (08:32→23:08)
[2021-06-30] MEDS: Sennosides 8.6 MG TABLET PO SCH (08:32)
[2021-06-30] MEDS: Nystatin SUSP 5 ML UD.LIQ PO SCH ×4 (08:32→23:08)
[2021-06-30] MEDS: Insulin LISPRO 300 UNITS/3 ML VIAL SUBQ SCH ×4 (08:33→22:19)
[2021-06-30] MEDS: MethylPREDNISolone 40 MG/ML VIAL IVP SCH ×2 (08:33→22:41)
[2021-06-30] MEDS: Pantoprazole 40 MG VIAL IVP SCH (08:33)
[2021-06-30 12:46] LABS: ABG Base Excess > 30 mEq/L (-2 to 3); ABG HCO3 69 mEq/L (21-27); ABG Oxygen Saturation 100 % (95-98); ABG PCO2 95 mmHg (35-45); ABG PH 7.47 pH Units (7.32-7.45); ABG PO2 183 mmHg (85-104); ABG TCO2 > 50 mEq/L (20-26)
[2021-06-30] MEDS: Scopolamine Patch 1.5 MG PATCH.TD72 TD SCH (14:20)
[2021-06-30] MEDS ORDERED: acetaZOLAMIDE 500 MG in Water for inj. (sterile) 5 ML IVP ONE (14:26)
[2021-06-30] MEDS: GuaiFENesin Liq 200 MG/10 ML UDC PO SCH (23:08)
[2021-06-30] MEDS: QUEtiapine Fumarate 25 MG TABLET PO SCH (23:08)
[2021-06-30] MEDS: Melatonin 3 MG TABLET PO SCH (23:08)
[2021-07-01] MEDS: GuaiFENesin Liq 200 MG/10 ML UDC PO SCH ×4 (00:28→16:38)
[2021-07-01 03:03] LABS: Hematocrit 42.4 % (37.5-50.1); Hemoglobin 12.8 g/dL (12.9-16.9); Mean Corpuscular HGB Conc 30.2 g/dL (31.6-35.5); Mean Corpuscular Volume 102.7 fL (83.0-100.0); Mean Platelet Volume 11.1 fL (9.4-12.4); Platelet Count 171 K/mcL (140-400); Red Blood Count 4.13 M/mcL (4.19-5.50); Red Cell Distribution Width 12.3 % (11.5-14.5); White Blood Count 14.4 K/mcL (4.3-11.1)
[2021-07-01 03:32] LABS: BUN/Creatinine Ratio 55 (6-26); Blood Urea Nitrogen 40 mg/dL (8-23); Calcium 9.2 mg/dL (8.6-10.3); Carbon Dioxide > 45 mEq/L (23-29); Chloride 85 mEq/L (98-107); Glucose 153 mg/dL (70-105); Osmolality,Calculated 305 (280-300); Sodium 141 mEq/L (136-145); eGFR For African Americans > 60 (> 60); eGFR For Non-African Americans > 60 (> 60)
[2021-07-01] MEDS: Ipratropium/Albuterol Neb 3 ML IH SCH ×5 (03:41→20:43)
[2021-07-01 04:47] LABS: ABG Base Excess 23 mEq/L (-2 to 3); ABG HCO3 54 mEq/L (21-27); ABG Oxygen Saturation 90 % (95-98); ABG PCO2 91 mmHg (35-45); ABG PH 7.38 pH Units (7.32-7.45); ABG PO2 65 mmHg (85-104); ABG TCO2 > 50 mEq/L (20-26)
[2021-07-01] MEDS: Doxycycline 100 MG in 0.9 % Sodium Chloride Mini Bag 100 ML IVPB SCH ×3 (06:10→16:37)
[2021-07-01] MEDS: MethylPREDNISolone 40 MG/ML VIAL IVP SCH ×4 (06:10→21:02)
[2021-07-01] MEDS: *HR* Enoxaparin 40 MG/0.4 ML SYRINGE SQ SCH (06:13)
[2021-07-01] MEDS: Budesonide/Formoterol 160/4.5 1 PUFF INH IH SCH ×2 (07:36→20:43)
[2021-07-01] MEDS: Piperacillin/Tazobactam 3.375 GM in 0.9 % Sodium Chloride Mini Bag 100 ML IVPB SCH ×3 (07:37→21:03)
[2021-07-01] MEDS: Insulin LISPRO 300 UNITS/3 ML VIAL SUBQ SCH ×4 (08:37→20:53)
[2021-07-01] MEDS: Sennosides 8.6 MG TABLET PO SCH (08:38)
[2021-07-01] MEDS: Aspirin 81 MG TAB.CHEW PO SCH (08:38)
[2021-07-01] MEDS: Pantoprazole 40 MG VIAL IVP SCH (08:38)
[2021-07-01] MEDS: Carbidopa/Levodopa 25/100 TABLET PO SCH ×2 (08:38→16:36)
[2021-07-01] MEDS: Nystatin SUSP 5 ML UD.LIQ PO SCH ×4 (08:38→21:02)
[2021-07-01] MEDS: QUEtiapine Fumarate 25 MG TABLET PO SCH (21:03)
[2021-07-01] MEDS: Melatonin 3 MG TABLET PO SCH (21:03)
[2021-07-02] MEDS: Carbidopa/Levodopa 25/100 TABLET PO SCH ×4 (00:05→23:49)
[2021-07-02] MEDS: GuaiFENesin Liq 200 MG/10 ML UDC PO SCH ×5 (00:05→23:49)
[2021-07-02] MEDS: Ipratropium/Albuterol Neb 3 ML IH SCH ×7 (00:17→23:30)
[2021-07-02 03:17] LABS: Basophils # 0.1 K/mcL (0.0-0.2); Basophils % 0.4 %; Eosinophils % 0.2 %; Hematocrit 39.9 % (37.5-50.1); Hemoglobin 12.2 g/dL (12.9-16.9); Immature Granulocytes % 2.1 % (0-4); Lymphocytes # 0.4 K/mcL (0.6-4.6); Lymphocytes % 2.3 %; Mean Corpuscular HGB Conc 30.6 g/dL (31.6-35.5); Mean Corpuscular Hemoglobin 30.3 pg (28.0-33.3); Mean Platelet Volume 11.4 fL (9.4-12.4); Monocytes # 0.6 K/mcL (0.0-1.3); Monocytes % 3.5 %; Neutrophils # 15.8 K/mcL (1.6-8.9); Platelet Count 171 K/mcL (140-400); Red Blood Count 4.03 M/mcL (4.19-5.50); Segmented Neutrophils % 91.5 %; White Blood Count 17.2 K/mcL (4.3-11.1)
[2021-07-02 03:43] LABS: BUN/Creatinine Ratio 64 (6-26); Blood Urea Nitrogen 42 mg/dL (8-23); Calcium 9.1 mg/dL (8.6-10.3); Carbon Dioxide > 45 mEq/L (23-29); Chloride 86 mEq/L (98-107); Glucose 237 mg/dL (70-105); Osmolality,Calculated 304 (280-300); Potassium 3.9 mEq/L (3.5-5.1); Sodium 138 mEq/L (136-145); eGFR For African Americans > 60 (> 60); eGFR For Non-African Americans > 60 (> 60)
[2021-07-02] MEDS: MethylPREDNISolone 40 MG/ML VIAL IVP SCH ×2 (06:26→17:51)
[2021-07-02] MEDS: Piperacillin/Tazobactam 3.375 GM in 0.9 % Sodium Chloride Mini Bag 100 ML IVPB SCH ×3 (06:27→21:05)
[2021-07-02] MEDS: Doxycycline 100 MG in 0.9 % Sodium Chloride Mini Bag 100 ML IVPB SCH (06:27)
[2021-07-02] MEDS: *HR* Enoxaparin 40 MG/0.4 ML SYRINGE SQ SCH (06:27)
[2021-07-02] MEDS: Insulin LISPRO 300 UNITS/3 ML VIAL SUBQ SCH ×4 (08:49→20:53)
[2021-07-02] MEDS: Sennosides 8.6 MG TABLET PO SCH (08:51)
[2021-07-02] MEDS: Nystatin SUSP 5 ML UD.LIQ PO SCH ×4 (08:51→21:05)
[2021-07-02] MEDS: Aspirin 81 MG TAB.CHEW PO SCH (08:51)
[2021-07-02] MEDS: Pantoprazole 40 MG VIAL IVP SCH (08:52)
[2021-07-02] MEDS: Budesonide/Formoterol 160/4.5 1 PUFF INH IH SCH ×2 (11:41→20:01)
[2021-07-02] MEDS: QUEtiapine Fumarate 25 MG TABLET PO SCH (21:05)
[2021-07-02] MEDS: Melatonin 3 MG TABLET PO SCH (21:05)
[2021-07-03 03:00] LABS: Basophils # 0.1 K/mcL (0.0-0.2); Basophils % 0.4 %; Hematocrit 38.7 % (37.5-50.1); Hemoglobin 11.5 g/dL (12.9-16.9); Immature Granulocytes % 2.9 % (0-4); Lymphocytes # 0.3 K/mcL (0.6-4.6); Lymphocytes % 1.9 %; Mean Corpuscular HGB Conc 29.7 g/dL (31.6-35.5); Mean Corpuscular Hemoglobin 29.9 pg (28.0-33.3); Mean Corpuscular Volume 100.8 fL (83.0-100.0); Mean Platelet Volume 10.9 fL (9.4-12.4); Monocytes # 0.7 K/mcL (0.0-1.3); Monocytes % 4.1 %; Neutrophils # 14.6 K/mcL (1.6-8.9); Platelet Count 158 K/mcL (140-400); Red Blood Count 3.84 M/mcL (4.19-5.50); Segmented Neutrophils % 90.7 %; White Blood Count 16.1 K/mcL (4.3-11.1)
[2021-07-03 03:23] LABS: BUN/Creatinine Ratio 63 (6-26); Blood Urea Nitrogen 37 mg/dL (8-23); Calcium 8.7 mg/dL (8.6-10.3); Carbon Dioxide > 45 mEq/L (23-29); Chloride 88 mEq/L (98-107); Glucose 272 mg/dL (70-105); Osmolality,Calculated 306 (280-300); Potassium 3.7 mEq/L (3.5-5.1); Sodium 139 mEq/L (136-145); eGFR For African Americans > 60 (> 60); eGFR For Non-African Americans > 60 (> 60)
[2021-07-03] MEDS: Ipratropium/Albuterol Neb 3 ML IH SCH ×6 (04:06→23:13)
[2021-07-03] MEDS: MethylPREDNISolone 40 MG/ML VIAL IVP SCH ×2 (05:46→16:33)
[2021-07-03] MEDS: GuaiFENesin Liq 200 MG/10 ML UDC PO SCH ×3 (05:46→16:33)
[2021-07-03] MEDS: Piperacillin/Tazobactam 3.375 GM in 0.9 % Sodium Chloride Mini Bag 100 ML IVPB SCH ×3 (05:46→20:44)
[2021-07-03] MEDS: *HR* Enoxaparin 40 MG/0.4 ML SYRINGE SQ SCH (05:47)
[2021-07-03] MEDS: Budesonide/Formoterol 160/4.5 1 PUFF INH IH SCH ×2 (07:36→19:53)
[2021-07-03] MEDS: Insulin LISPRO 300 UNITS/3 ML VIAL SUBQ SCH ×4 (07:40→20:26)
[2021-07-03] MEDS: Carbidopa/Levodopa 25/100 TABLET PO SCH ×2 (07:50→13:57)
[2021-07-03] MEDS: Nystatin SUSP 5 ML UD.LIQ PO SCH ×4 (07:50→20:45)
[2021-07-03] MEDS: Pantoprazole 40 MG VIAL IVP SCH (07:50)
[2021-07-03] MEDS: Aspirin 81 MG TAB.CHEW PO SCH (07:50)
[2021-07-03] MEDS: Sennosides 8.6 MG TABLET PO SCH (07:50)
[2021-07-03] MEDS: Scopolamine Patch 1.5 MG PATCH.TD72 TD SCH (12:04)
[2021-07-03] MEDS: Furosemide 20 MG TABLET PO SCH (12:04)
[2021-07-03] MEDS: Acetaminophen 325 MG TABLET PO PRN (13:57)
[2021-07-03] MEDS: Melatonin 3 MG TABLET PO SCH (20:44)
[2021-07-03] MEDS: QUEtiapine Fumarate 25 MG TABLET PO SCH (20:44)
[2021-07-04] MEDS: Carbidopa/Levodopa 25/100 TABLET PO SCH ×4 (00:40→23:32)
[2021-07-04] MEDS: GuaiFENesin Liq 200 MG/10 ML UDC PO SCH ×5 (00:40→23:32)
[2021-07-04 01:32] LABS: Basophils # 0.1 K/mcL (0.0-0.2); Basophils % 0.5 %; Hematocrit 37.7 % (37.5-50.1); Hemoglobin 11.2 g/dL (12.9-16.9); Immature Granulocytes % 2.6 % (0-4); Lymphocytes # 0.4 K/mcL (0.6-4.6); Lymphocytes % 2.7 %; Mean Corpuscular HGB Conc 29.7 g/dL (31.6-35.5); Mean Corpuscular Hemoglobin 29.9 pg (28.0-33.3); Mean Corpuscular Volume 100.5 fL (83.0-100.0); Mean Platelet Volume 11.3 fL (9.4-12.4); Monocytes # 0.5 K/mcL (0.0-1.3); Monocytes % 3.2 %; Neutrophils # 14.1 K/mcL (1.6-8.9); Platelet Count 149 K/mcL (140-400); Red Blood Count 3.75 M/mcL (4.19-5.50); Red Cell Distribution Width 11.9 % (11.5-14.5); White Blood Count 15.5 K/mcL (4.3-11.1)
[2021-07-04 01:51] LABS: BUN/Creatinine Ratio 50 (6-26); Blood Urea Nitrogen 29 mg/dL (8-23); Calcium 8.6 mg/dL (8.6-10.3); Carbon Dioxide > 45 mEq/L (23-29); Chloride 87 mEq/L (98-107); Glucose 223 mg/dL (70-105); Osmolality,Calculated 299 (280-300); Potassium 3.8 mEq/L (3.5-5.1); Sodium 138 mEq/L (136-145); eGFR For African Americans > 60 (> 60); eGFR For Non-African Americans > 60 (> 60)
[2021-07-04] MEDS: Ipratropium/Albuterol Neb 3 ML IH SCH ×6 (03:44→23:58)
[2021-07-04] MEDS: MethylPREDNISolone 40 MG/ML VIAL IVP SCH ×2 (05:20→16:29)
[2021-07-04] MEDS: *HR* Enoxaparin 40 MG/0.4 ML SYRINGE SQ SCH (05:20)
[2021-07-04] MEDS: Budesonide/Formoterol 160/4.5 1 PUFF INH IH SCH ×2 (07:31→20:25)
[2021-07-04] MEDS: Pantoprazole 40 MG VIAL IVP SCH (08:40)
[2021-07-04] MEDS: Nystatin SUSP 5 ML UD.LIQ PO SCH ×4 (08:40→22:14)
[2021-07-04] MEDS: Sennosides 8.6 MG TABLET PO SCH (08:40)
[2021-07-04] MEDS: Aspirin 81 MG TAB.CHEW PO SCH (08:41)
[2021-07-04] MEDS: Furosemide 20 MG TABLET PO SCH (08:41)
[2021-07-04] MEDS: Insulin LISPRO 300 UNITS/3 ML VIAL SUBQ SCH ×4 (08:41→21:57)
[2021-07-04] MEDS: Melatonin 3 MG TABLET PO SCH (22:14)
[2021-07-04] MEDS: QUEtiapine Fumarate 25 MG TABLET PO SCH (22:14)
[2021-07-05] MEDS: Ipratropium/Albuterol Neb 3 ML IH SCH ×6 (04:55→23:58)
[2021-07-05] MEDS: *HR* Enoxaparin 40 MG/0.4 ML SYRINGE SQ SCH (06:01)
[2021-07-05] MEDS: GuaiFENesin Liq 200 MG/10 ML UDC PO SCH ×3 (06:01→17:20)
[2021-07-05] MEDS: MethylPREDNISolone 40 MG/ML VIAL IVP SCH (06:01)
[2021-07-05] MEDS: Budesonide/Formoterol 160/4.5 1 PUFF INH IH SCH ×2 (08:26→19:54)
[2021-07-05] MEDS: Insulin LISPRO 300 UNITS/3 ML VIAL SUBQ SCH ×4 (08:28→19:33)
[2021-07-05] MEDS: Nystatin SUSP 5 ML UD.LIQ PO SCH ×4 (08:44→19:46)
[2021-07-05] MEDS: Aspirin 81 MG TAB.CHEW PO SCH (08:44)
[2021-07-05] MEDS: Sennosides 8.6 MG TABLET PO SCH (08:44)
[2021-07-05] MEDS: predniSONE 20 MG TABLET PO SCH (08:44)
[2021-07-05] MEDS: Carbidopa/Levodopa 25/100 TABLET PO SCH ×2 (08:44→17:20)
[2021-07-05] MEDS: Furosemide 20 MG TABLET PO SCH (08:44)
[2021-07-05] MEDS: Melatonin 3 MG TABLET PO SCH (19:46)
[2021-07-05] MEDS: QUEtiapine Fumarate 25 MG TABLET PO SCH (19:46)
[2021-07-05] MEDS: Saline Nasal Spray 44 ML BOTTLE NS PRN (20:42)
[2021-07-05 22:22] LABS: VBG HCO3 55 mEq/L (21-27); VBG PCO2 110 mmHg (41-51); VBG PO2 56 mmHg (25-50)
[2021-07-06] MEDS: Carbidopa/Levodopa 25/100 TABLET PO SCH ×3 (01:47→17:53)
[2021-07-06] MEDS: GuaiFENesin Liq 200 MG/10 ML UDC PO SCH ×4 (01:47→17:53)
[2021-07-06] MEDS: Ipratropium/Albuterol Neb 3 ML IH SCH ×6 (03:45→23:42)
[2021-07-06 04:27] LABS: Eosinophils % 0.1 %
[2021-07-06 04:29] LABS: Basophils % 0.3 %; Hemoglobin 10.9 g/dL (12.9-16.9); Immature Granulocytes % 1.8 % (0-4); Immature Platelets 7.7 % (1.1-6.1); Lymphocytes # 0.8 K/mcL (0.6-4.6); Mean Corpuscular HGB Conc 30.3 g/dL (31.6-35.5); Mean Corpuscular Hemoglobin 31.4 pg (28.0-33.3); Mean Corpuscular Volume 103.7 fL (83.0-100.0); Mean Platelet Volume 11.3 fL (9.4-12.4); Monocytes # 0.8 K/mcL (0.0-1.3); Monocytes % 4.9 %; Nucleated Red Blood Cells 0.1 /100 WBC (0); Platelet Count 148 K/mcL (140-400); Red Blood Count 3.47 M/mcL (4.19-5.50); Segmented Neutrophils % 87.9 %
[2021-07-06 04:30] LABS: Basophils # 0.1 K/mcL (0.0-0.2); Neutrophils # 14.1 K/mcL (1.6-8.9)
[2021-07-06 04:58] LABS: BUN/Creatinine Ratio 58 (6-26); Blood Urea Nitrogen 18 mg/dL (8-23); Carbon Dioxide > 45 mEq/L (23-29); Chloride 94 mEq/L (98-107); Glucose 112 mg/dL (70-105); Osmolality,Calculated 297 (280-300); Potassium 3.2 mEq/L (3.5-5.1); Sodium 142 mEq/L (136-145); eGFR For African Americans > 60 (> 60); eGFR For Non-African Americans > 60 (> 60)
[2021-07-06] MEDS: Saline Nasal Spray 44 ML BOTTLE NS PRN (06:05)
[2021-07-06] MEDS: *HR* Enoxaparin 40 MG/0.4 ML SYRINGE SQ SCH (06:05)
[2021-07-06] MEDS ORDERED: Potassium Chloride Elixir 20 MEQ/15 ML UDC PO ONE (07:17)
[2021-07-06] MEDS: Budesonide/Formoterol 160/4.5 1 PUFF INH IH SCH ×2 (07:36→20:57)
[2021-07-06] MEDS: Insulin LISPRO 300 UNITS/3 ML VIAL SUBQ SCH ×4 (08:34→21:04)
[2021-07-06] MEDS: Sennosides 8.6 MG TABLET PO SCH (08:42)
[2021-07-06] MEDS: Aspirin 81 MG TAB.CHEW PO SCH (08:42)
[2021-07-06] MEDS: predniSONE 20 MG TABLET PO SCH (08:42)
[2021-07-06] MEDS: Nystatin SUSP 5 ML UD.LIQ PO SCH ×4 (08:43→20:38)
[2021-07-06] MEDS ORDERED: Furosemide 20 MG TABLET PO SCH (09:00)
[2021-07-06] MEDS: Scopolamine Patch 1.5 MG PATCH.TD72 TD SCH (12:12)
[2021-07-06] MEDS: Acetylcysteine 10% 2 ML INHSOL IH SCH ×2 (15:38→20:57)
[2021-07-06] MEDS: Acetaminophen 325 MG TABLET PO PRN (17:53)
[2021-07-06] MEDS: QUEtiapine Fumarate 25 MG TABLET PO SCH (20:38)
[2021-07-06] MEDS: Melatonin 3 MG TABLET PO SCH (20:38)
[2021-07-07] MEDS: Carbidopa/Levodopa 25/100 TABLET PO SCH ×4 (00:14→23:51)
[2021-07-07] MEDS: GuaiFENesin Liq 200 MG/10 ML UDC PO SCH ×5 (00:14→23:54)
[2021-07-07 00:46] LABS: Hematocrit 37.8 % (37.5-50.1); Hemoglobin 11.3 g/dL (12.9-16.9); Mean Corpuscular HGB Conc 29.9 g/dL (31.6-35.5)
[2021-07-07 00:48] LABS: Basophils % 0.2 %; Immature Granulocytes % 1.8 % (0-4); Immature Platelets 7.7 % (1.1-6.1); Lymphocytes # 0.3 K/mcL (0.6-4.6); Lymphocytes % 1.9 %; Mean Corpuscular Volume 103.8 fL (83.0-100.0); Mean Platelet Volume 11.4 fL (9.4-12.4); Monocytes # 0.4 K/mcL (0.0-1.3); Monocytes % 2.6 %; Neutrophils # 15.4 K/mcL (1.6-8.9); Nucleated Red Blood Cells 0.2 /100 WBC (0); Platelet Count 129 K/mcL (140-400); Red Blood Count 3.64 M/mcL (4.19-5.50); Segmented Neutrophils % 93.5 %; White Blood Count 16.5 K/mcL (4.3-11.1)
[2021-07-07 00:55] LABS: VBG HCO3 54 mEq/L (21-27); VBG PCO2 95 mmHg (41-51); VBG PH 7.36 pH Units (7.32-7.42); VBG PO2 189 mmHg (25-50)
[2021-07-07 01:11] LABS: BUN/Creatinine Ratio 66 (6-26); Blood Urea Nitrogen 29 mg/dL (8-23); Calcium 8.8 mg/dL (8.6-10.3); Carbon Dioxide > 45 mEq/L (23-29); Chloride 84 mEq/L (98-107); Glucose 174 mg/dL (70-105); Osmolality,Calculated 304 (280-300); Potassium 4.3 mEq/L (3.5-5.1); Sodium 142 mEq/L (136-145); eGFR For African Americans > 60 (> 60); eGFR For Non-African Americans > 60 (> 60)
[2021-07-07] MEDS: Ipratropium/Albuterol Neb 3 ML IH SCH ×6 (03:48→23:50)
[2021-07-07 06:01] LABS: ABG Base Excess > 30 mEq/L (-2 to 3); ABG HCO3 73 mEq/L (21-27); ABG Oxygen Saturation 84 % (95-98); ABG PCO2 119 mmHg (35-45); ABG PO2 57 mmHg (85-104); ABG TCO2 > 50 mEq/L (20-26); Blood Gas Modality BiLevel; Blood Gas VT 500 cc
[2021-07-07] MEDS: *HR* Enoxaparin 40 MG/0.4 ML SYRINGE SQ SCH (07:15)
[2021-07-07 07:29] LABS: ABG Base Excess > 30 mEq/L (-2 to 3); ABG HCO3 74 mEq/L (21-27); ABG Oxygen Saturation 85 % (95-98); ABG PCO2 117 mmHg (35-45); ABG PH 7.41 pH Units (7.32-7.45); ABG PO2 58 mmHg (85-104); ABG TCO2 > 50 mEq/L (20-26); Blood Gas Modality BiLevel; Blood Gas VT 560 cc
[2021-07-07] MEDS: Budesonide/Formoterol 160/4.5 1 PUFF INH IH SCH ×2 (08:32→20:32)
[2021-07-07] MEDS ORDERED: Isovue-370 500 ML BOTTLE IVP ONE (10:59)
[2021-07-07] MEDS ORDERED: acetaZOLAMIDE 250 MG in Water for inj. (sterile) 2.5 ML IVP ONE (11:26)
[2021-07-07] MEDS: Insulin LISPRO 300 UNITS/3 ML VIAL SUBQ SCH ×4 (12:44→23:19)
[2021-07-07] MEDS: Sennosides 8.6 MG TABLET PO SCH (12:44)
[2021-07-07] MEDS: Aspirin 81 MG TAB.CHEW PO SCH (12:44)
[2021-07-07] MEDS: Nystatin SUSP 5 ML UD.LIQ PO SCH ×4 (12:44→23:22)
[2021-07-07] MEDS: MethylPREDNISolone 40 MG/ML VIAL IVP SCH (23:50)
[2021-07-07] MEDS: Melatonin 3 MG TABLET PO SCH (23:51)
[2021-07-07] MEDS: QUEtiapine Fumarate 25 MG TABLET PO SCH (23:51)
[2021-07-08] MEDS: Ipratropium/Albuterol Neb 3 ML IH SCH ×5 (04:19→20:35)
[2021-07-08 05:01] LABS: ABG Base Excess 22 mEq/L (-2 to 3); ABG HCO3 52 mEq/L (21-27); ABG Oxygen Saturation 94 % (95-98); ABG PCO2 87 mmHg (35-45); ABG PH 7.39 pH Units (7.32-7.45); ABG PO2 79 mmHg (85-104); ABG TCO2 > 50 mEq/L (20-26); Blood Gas Modality BiLevel; Blood Gas VT 560 cc
[2021-07-08 05:39] LABS: Basophils % 0.3 %; Hematocrit 37.9 % (37.5-50.1); Hemoglobin 11.1 g/dL (12.9-16.9); Immature Granulocytes % 1.5 % (0-4); Lymphocytes # 0.3 K/mcL (0.6-4.6); Lymphocytes % 2.6 %; Mean Corpuscular HGB Conc 29.3 g/dL (31.6-35.5); Mean Corpuscular Volume 102.4 fL (83.0-100.0); Mean Platelet Volume 11.3 fL (9.4-12.4); Monocytes # 0.2 K/mcL (0.0-1.3); Monocytes % 1.9 %; Neutrophils # 12.1 K/mcL (1.6-8.9); Nucleated Red Blood Cells 0.2 /100 WBC (0); Platelet Count 102 K/mcL (140-400); Red Cell Distribution Width 12.7 % (11.5-14.5); Segmented Neutrophils % 93.7 %; White Blood Count 12.9 K/mcL (4.3-11.1)
[2021-07-08] MEDS: *HR* Enoxaparin 40 MG/0.4 ML SYRINGE SQ SCH (05:49)
[2021-07-08] MEDS: MethylPREDNISolone 40 MG/ML VIAL IVP SCH ×2 (05:49→15:33)
[2021-07-08] MEDS: GuaiFENesin Liq 200 MG/10 ML UDC PO SCH ×3 (05:50→15:33)
[2021-07-08 06:10] LABS: BUN/Creatinine Ratio 78 (6-26); Blood Urea Nitrogen 29 mg/dL (8-23); Calcium 8.6 mg/dL (8.6-10.3); Carbon Dioxide > 45 mEq/L (23-29); Chloride 85 mEq/L (98-107); Glucose 119 mg/dL (70-105); Osmolality,Calculated 299 (280-300); Potassium 4.1 mEq/L (3.5-5.1); Sodium 141 mEq/L (136-145); eGFR For African Americans > 60 (> 60); eGFR For Non-African Americans > 60 (> 60)
[2021-07-08 06:48] LABS: Magnesium 1.7 mg/dL (1.6-2.6)
[2021-07-08] MEDS: Budesonide/Formoterol 160/4.5 1 PUFF INH IH SCH ×2 (07:59→20:35)
[2021-07-08] MEDS: Nystatin SUSP 5 ML UD.LIQ PO SCH ×4 (08:12→21:31)
[2021-07-08] MEDS: Aspirin 81 MG TAB.CHEW PO SCH (08:12)
[2021-07-08] MEDS: Carbidopa/Levodopa 25/100 TABLET PO SCH ×2 (08:12→15:33)
[2021-07-08] MEDS: Sennosides 8.6 MG TABLET PO SCH (08:12)
[2021-07-08] MEDS: Insulin LISPRO 300 UNITS/3 ML VIAL SUBQ SCH ×4 (08:16→21:32)
[2021-07-08] MEDS: Furosemide 20 MG TABLET PO SCH (11:57)
[2021-07-08] MEDS: QUEtiapine Fumarate 25 MG TABLET PO SCH (21:31)
[2021-07-08] MEDS: Melatonin 3 MG TABLET PO SCH (21:32)
[2021-07-09] MEDS: Ipratropium/Albuterol Neb 3 ML IH SCH ×6 (00:14→20:01)
[2021-07-09] MEDS: GuaiFENesin Liq 200 MG/10 ML UDC PO SCH ×4 (02:28→17:31)
[2021-07-09] MEDS: *HR* Enoxaparin 40 MG/0.4 ML SYRINGE SQ SCH (05:09)
[2021-07-09] MEDS: MethylPREDNISolone 40 MG/ML VIAL IVP SCH ×2 (05:10→17:26)
[2021-07-09] MEDS: Carbidopa/Levodopa 25/100 TABLET PO SCH ×3 (05:15→15:29)
[2021-07-09] MEDS: Budesonide/Formoterol 160/4.5 1 PUFF INH IH SCH ×2 (07:31→20:01)
[2021-07-09] MEDS: Sennosides 8.6 MG TABLET PO SCH (08:15)
[2021-07-09] MEDS: Nystatin SUSP 5 ML UD.LIQ PO SCH ×4 (08:15→19:47)
[2021-07-09] MEDS: Furosemide 20 MG TABLET PO SCH (08:15)
[2021-07-09] MEDS: Aspirin 81 MG TAB.CHEW PO SCH (08:15)
[2021-07-09] MEDS: Insulin LISPRO 300 UNITS/3 ML VIAL SUBQ SCH ×3 (08:17→17:26)
[2021-07-09 09:32] LABS: Hemoglobin 10.4 g/dL (12.9-16.9); Immature Granulocytes % 0.8 % (0-4); Lymphocytes % 2.7 %; Red Cell Distribution Width 12.6 % (11.5-14.5)
[2021-07-09 09:33] LABS: Basophils % 0.1 %
[2021-07-09 09:34] LABS: Eosinophils % 0.1 %; Immature Platelets 5.9 % (1.1-6.1); Lymphocytes # 0.3 K/mcL (0.6-4.6); Mean Corpuscular HGB Conc 30.6 g/dL (31.6-35.5); Mean Corpuscular Hemoglobin 31.4 pg (28.0-33.3); Mean Corpuscular Volume 102.7 fL (83.0-100.0); Mean Platelet Volume 11.3 fL (9.4-12.4); Monocytes # 0.3 K/mcL (0.0-1.3); Monocytes % 2.2 %; Platelet Count 129 K/mcL (140-400); Red Blood Count 3.31 M/mcL (4.19-5.50); Segmented Neutrophils % 94.1 %; White Blood Count 12.7 K/mcL (4.3-11.1)
[2021-07-09 11:34] LABS: BUN/Creatinine Ratio 60 (6-26); Blood Urea Nitrogen 28 mg/dL (8-23); Calcium 8.5 mg/dL (8.6-10.3); Carbon Dioxide > 45 mEq/L (23-29); Chloride 85 mEq/L (98-107); Glucose 229 mg/dL (70-105); Osmolality,Calculated 301 (280-300); Potassium 4.4 mEq/L (3.5-5.1); Sodium 139 mEq/L (136-145); eGFR For African Americans > 60 (> 60); eGFR For Non-African Americans > 60 (> 60)
[2021-07-09] MEDS: Scopolamine Patch 1.5 MG PATCH.TD72 TD SCH (12:19)
[2021-07-09] MEDS: QUEtiapine Fumarate 25 MG TABLET PO SCH (19:47)
[2021-07-10] MEDS: Ipratropium/Albuterol Neb 3 ML IH SCH ×7 (00:09→23:55)
[2021-07-10] MEDS: Melatonin 3 MG TABLET PO SCH ×2 (01:31→20:02)
[2021-07-10] MEDS: Carbidopa/Levodopa 25/100 TABLET PO SCH ×3 (01:31→18:08)
[2021-07-10] MEDS: Insulin LISPRO 300 UNITS/3 ML VIAL SUBQ SCH ×5 (01:32→20:51)
[2021-07-10] MEDS: GuaiFENesin Liq 200 MG/10 ML UDC PO SCH ×4 (01:33→18:08)
[2021-07-10] MEDS: MethylPREDNISolone 40 MG/ML VIAL IVP SCH (06:13)
[2021-07-10] MEDS: *HR* Enoxaparin 40 MG/0.4 ML SYRINGE SQ SCH (06:14)
[2021-07-10] MEDS: Budesonide/Formoterol 160/4.5 1 PUFF INH IH SCH ×2 (07:40→20:21)
[2021-07-10 07:49] LABS: Basophils % 0.2 %; Hemoglobin 10.2 g/dL (12.9-16.9); Mean Corpuscular Volume 103.3 fL (83.0-100.0)
[2021-07-10 07:51] LABS: Eosinophils # 0.1 K/mcL (0.0-0.6); Eosinophils % 0.7 %; Hematocrit 34.4 % (37.5-50.1); Immature Granulocytes % 1.2 % (0-4); Immature Platelets 6.8 % (1.1-6.1); Lymphocytes # 0.7 K/mcL (0.6-4.6); Lymphocytes % 7.8 %; Mean Corpuscular HGB Conc 29.7 g/dL (31.6-35.5); Mean Corpuscular Hemoglobin 30.6 pg (28.0-33.3); Mean Platelet Volume 11.6 fL (9.4-12.4); Monocytes # 0.5 K/mcL (0.0-1.3); Monocytes % 6.1 %; Neutrophils # 7.2 K/mcL (1.6-8.9); Platelet Count 109 K/mcL (140-400); Red Blood Count 3.33 M/mcL (4.19-5.50); Red Cell Distribution Width 12.5 % (11.5-14.5); White Blood Count 8.6 K/mcL (4.3-11.1)
[2021-07-10 08:39] LABS: BUN/Creatinine Ratio 61 (6-26); Blood Urea Nitrogen 25 mg/dL (8-23); Calcium 8.7 mg/dL (8.6-10.3); Carbon Dioxide > 45 mEq/L (23-29); Chloride 86 mEq/L (98-107); Glucose 117 mg/dL (70-105); Osmolality,Calculated 301 (280-300); Potassium 4.4 mEq/L (3.5-5.1); Sodium 143 mEq/L (136-145); eGFR For African Americans > 60 (> 60); eGFR For Non-African Americans > 60 (> 60)
[2021-07-10] MEDS: Sennosides 8.6 MG TABLET PO SCH (08:50)
[2021-07-10] MEDS: Aspirin 81 MG TAB.CHEW PO SCH (08:50)
[2021-07-10] MEDS: Furosemide 20 MG TABLET PO SCH (08:50)
[2021-07-10] MEDS: Nystatin SUSP 5 ML UD.LIQ PO SCH ×2 (08:50→12:11)
[2021-07-10] MEDS: QUEtiapine Fumarate 25 MG TABLET PO SCH (20:03)
[2021-07-10] MEDS: Haloperidol Lactate 5 MG/ML VIAL IVP PRN (20:54)
[2021-07-10] MEDS ORDERED: *HR* LORazepam 2 MG/ML VIAL IVP ONE (22:06)
[2021-07-11] MEDS: Carbidopa/Levodopa 25/100 TABLET PO SCH ×3 (00:41→17:09)
[2021-07-11] MEDS: GuaiFENesin Liq 200 MG/10 ML UDC PO SCH ×4 (00:41→17:12)
[2021-07-11 03:30] LABS: Basophils % 0.1 %; Eosinophils % 0.5 %; Hematocrit 32.2 % (37.5-50.1); Hemoglobin 9.6 g/dL (12.9-16.9); Immature Granulocytes % 1.4 % (0-4); Lymphocytes # 0.6 K/mcL (0.6-4.6); Lymphocytes % 6.9 %; Mean Corpuscular HGB Conc 29.8 g/dL (31.6-35.5); Mean Corpuscular Hemoglobin 31.4 pg (28.0-33.3); Mean Corpuscular Volume 105.2 fL (83.0-100.0); Mean Platelet Volume 10.6 fL (9.4-12.4); Monocytes # 0.6 K/mcL (0.0-1.3); Neutrophils # 6.7 K/mcL (1.6-8.9); Platelet Count 112 K/mcL (140-400); Red Blood Count 3.06 M/mcL (4.19-5.50); Red Cell Distribution Width 12.6 % (11.5-14.5); Segmented Neutrophils % 84.1 %
[2021-07-11] MEDS: Ipratropium/Albuterol Neb 3 ML IH SCH ×5 (04:04→19:25)
[2021-07-11 04:24] LABS: BUN/Creatinine Ratio 64 (6-26); Blood Urea Nitrogen 25 mg/dL (8-23); Calcium 7.9 mg/dL (8.6-10.3); Carbon Dioxide > 45 mEq/L (23-29); Chloride 86 mEq/L (98-107); Glucose 119 mg/dL (70-105); Magnesium 1.6 mg/dL (1.6-2.6); Osmolality,Calculated 302 (280-300); Sodium 143 mEq/L (136-145); eGFR For African Americans > 60 (> 60); eGFR For Non-African Americans > 60 (> 60)
[2021-07-11] MEDS: *HR* Enoxaparin 40 MG/0.4 ML SYRINGE SQ SCH (05:47)
[2021-07-11] MEDS: Budesonide/Formoterol 160/4.5 1 PUFF INH IH SCH ×2 (07:22→19:37)
[2021-07-11] MEDS: Insulin LISPRO 300 UNITS/3 ML VIAL SUBQ SCH ×4 (09:47→19:43)
[2021-07-11] MEDS: MethylPREDNISolone 40 MG/ML VIAL IVP SCH (10:00)
[2021-07-11 10:44] LABS: ABG Base Excess > 30 mEq/L (-2 to 3); ABG HCO3 67 mEq/L (21-27); ABG Oxygen Saturation 86 % (95-98); ABG PCO2 104 mmHg (35-45); ABG PH 7.42 pH Units (7.32-7.45); ABG PO2 57 mmHg (85-104); ABG TCO2 > 50 mEq/L (20-26); Blood Gas VT 480 cc
[2021-07-11] MEDS ORDERED: acetaZOLAMIDE 250 MG in Water for inj. (sterile) 2.5 ML IVP ONE (11:33)
[2021-07-11] MEDS ORDERED: Piperacillin/Tazobactam 3.375 GM in 0.9 % Sodium Chloride Mini Bag 100 ML IVPB SCH (12:00)
[2021-07-11] MEDS ORDERED: Vancomycin 1,500 MG/265 ML IV.SOLN IVPB SCH (12:00)
[2021-07-11] MEDS: Cefepime HCl 2,000 MG in 0.9 % Sodium Chloride Mini Bag 100 ML IVPB SCH ×2 (14:37→19:54)
[2021-07-11] MEDS: MetroNIDAZOLE 500 MG/100 ML 500 MG/100 ML BAG IVPB SCH ×2 (15:19→19:53)
[2021-07-11] MEDS: Aspirin 81 MG TAB.CHEW PO SCH (17:08)
[2021-07-11] MEDS: Furosemide 20 MG TABLET PO SCH (17:09)
[2021-07-11] MEDS: Sennosides 8.6 MG TABLET PO SCH (17:09)
[2021-07-11 19:20] LABS: Adenovirus Not Detected (Not Detect); Coronavirus 229E Not Detected (Not Detect); Coronavirus HKU1 Not Detected (Not Detect); Coronavirus NL63 Not Detected (Not Detect); Coronavirus OC43 Not Detected (Not Detect)
[2021-07-11 19:22] LABS: Bordetella Pertussis Not Detected (Not Detect); Chlamydophila pneumoniae Not Detected (Not Detect); Human Metapneumovirus Not Detected (Not Detect); Human Rhinovirus/Enterovirus Not Detected (Not Detect); Influenza A Subtype 2009 H1 Not Detected (Not Detect); Influenza B Not Detected (Not Detect); Mycoplasma pneumoniae Not Detected (Not Detect); Parainfluenza Virus 1 Not Detected (Not Detect); Parainfluenza Virus 2 Not Detected (Not Detect); Parainfluenza Virus 3 Not Detected (Not Detect); Parainfluenza Virus 4 Not Detected (Not Detect); Respiratory Syncytial Virus Not Detected (Not Detect); SARS-CoV-2 DETECTED (Not Detect)
[2021-07-11] MEDS: QUEtiapine Fumarate 25 MG TABLET PO SCH (20:00)
[2021-07-11] MEDS: Melatonin 3 MG TABLET PO SCH (20:00)
[2021-07-11] MEDS ORDERED: Albuterol 2.5 MG/3 ML NEBULIZER IH SCH (22:00)
[2021-07-11] MEDS: Ipratropium 1 PUFF INHALER IH SCH (22:41)
[2021-07-12] MEDS: Carbidopa/Levodopa 25/100 TABLET PO SCH ×4 (00:51→23:41)
[2021-07-12] MEDS: GuaiFENesin Liq 200 MG/10 ML UDC PO SCH ×5 (00:51→23:42)
[2021-07-12] MEDS: Haloperidol Lactate 5 MG/ML VIAL IVP PRN (01:23)
[2021-07-12 01:27] LABS: Basophils % 0.4 %; Hematocrit 33.6 % (37.5-50.1); Hemoglobin 9.8 g/dL (12.9-16.9); Immature Granulocytes % 1.5 % (0-4); Lymphocytes # 0.6 K/mcL (0.6-4.6); Lymphocytes % 6.7 %; Mean Corpuscular HGB Conc 29.2 g/dL (31.6-35.5); Mean Corpuscular Hemoglobin 30.2 pg (28.0-33.3); Mean Corpuscular Volume 103.7 fL (83.0-100.0); Mean Platelet Volume 10.6 fL (9.4-12.4); Monocytes # 0.5 K/mcL (0.0-1.3); Monocytes % 5.6 %; Neutrophils # 7.4 K/mcL (1.6-8.9); Platelet Count 115 K/mcL (140-400); Red Blood Count 3.24 M/mcL (4.19-5.50); Red Cell Distribution Width 12.8 % (11.5-14.5); Segmented Neutrophils % 85.8 %; White Blood Count 8.6 K/mcL (4.3-11.1)
[2021-07-12 02:24] LABS: BUN/Creatinine Ratio 62 (6-26); Blood Urea Nitrogen 24 mg/dL (8-23); Calcium 8.2 mg/dL (8.6-10.3); Carbon Dioxide > 45 mEq/L (23-29); Chloride 88 mEq/L (98-107); Glucose 102 mg/dL (70-105); Osmolality,Calculated 294 (280-300); Potassium 4.5 mEq/L (3.5-5.1); Sodium 140 mEq/L (136-145); eGFR For African Americans > 60 (> 60); eGFR For Non-African Americans > 60 (> 60)
[2021-07-12] MEDS: Cefepime HCl 2,000 MG in 0.9 % Sodium Chloride Mini Bag 100 ML IVPB SCH (03:02)
[2021-07-12] MEDS: MetroNIDAZOLE 500 MG/100 ML 500 MG/100 ML BAG IVPB SCH (03:02)
[2021-07-12] MEDS ORDERED: *HR* LORazepam 2 MG/ML VIAL IVP ONE (03:07)
[2021-07-12] MEDS: Ipratropium 1 PUFF INHALER IH SCH ×4 (04:01→20:05)
[2021-07-12 04:19] LABS: ABG Base Excess 19 mEq/L (-2 to 3); ABG HCO3 50 mEq/L (21-27); ABG Oxygen Saturation 88 % (95-98); ABG PCO2 93 mmHg (35-45); ABG PH 7.34 pH Units (7.32-7.45); ABG PO2 63 mmHg (85-104); ABG TCO2 > 50 mEq/L (20-26); Blood Gas VT 480 cc
[2021-07-12] MEDS: *HR* Enoxaparin 40 MG/0.4 ML SYRINGE SQ SCH (04:58)
[2021-07-12] MEDS: Insulin LISPRO 300 UNITS/3 ML VIAL SUBQ SCH ×4 (07:36→23:42)
[2021-07-12] MEDS: MethylPREDNISolone 40 MG/ML VIAL IVP SCH (08:44)
[2021-07-12] MEDS: Sennosides 8.6 MG TABLET PO SCH (08:45)
[2021-07-12] MEDS: Aspirin 81 MG TAB.CHEW PO SCH (08:45)
[2021-07-12] MEDS: Furosemide 20 MG TABLET PO SCH (08:45)
[2021-07-12] MEDS: Scopolamine Patch 1.5 MG PATCH.TD72 TD SCH (12:03)
[2021-07-12 12:41] LABS: Bacteria,Urine Few per hpf (None-Few); Bilirubin,Urine Negative (Negative); Blood,Urine Large (Negative); Budding Yeast,Urine Few per hpf (None Seen); Clarity,Urine Clear (Clear); Color,Urine Yellow (Yellow); Glucose,Urine (UA) Normal (Normal); Hyaline Casts,Urine Few per lpf (None Seen); Ketones,Urine Trace mg/dL (Negative); Leukocyte Esterase,Urine Trace (Negative); Mucus,Urine Few per lpf (None-Few); Nitrite,Urine Negative (Negative); PH,Urine 6.5 pH Units (5.0-8.0); Protein,Urine Trace mg/dL (Neg-Trace); RBC,Urine 30-50 per hpf (0-3); Specific Gravity,Urine 1.021 (1.010-1.025); Urobilinogen,Urine Normal (Normal)
[2021-07-12 14:52] LABS: C-Reactive Protein 22 mg/L (Less than 10); Lactate Dehydrogenase 170 Units/L (140-271)
[2021-07-12 15:10] LABS: Ferritin 420 ng/mL (20-250)
[2021-07-12] MEDS: Melatonin 3 MG TABLET PO SCH (23:41)
[2021-07-12] MEDS: QUEtiapine Fumarate 25 MG TABLET PO SCH (23:41)
[2021-07-12] MEDS ORDERED: *HR* LORazepam 0.5 MG TABLET PO ONE (23:43)
[2021-07-13] MEDS: Ipratropium 1 PUFF INHALER IH SCH ×4 (03:43→20:33)
[2021-07-13] MEDS: *HR* Enoxaparin 40 MG/0.4 ML SYRINGE SQ SCH (05:38)
[2021-07-13] MEDS: GuaiFENesin Liq 200 MG/10 ML UDC PO SCH ×3 (05:39→16:43)
[2021-07-13 06:13] LABS: Basophils % 0.3 %; Hematocrit 33.9 % (37.5-50.1); Hemoglobin 10.2 g/dL (12.9-16.9); Immature Granulocytes % 1.4 % (0-4); Lymphocytes # 0.5 K/mcL (0.6-4.6); Lymphocytes % 5.1 %; Mean Corpuscular HGB Conc 30.1 g/dL (31.6-35.5); Mean Corpuscular Hemoglobin 30.4 pg (28.0-33.3); Mean Corpuscular Volume 101.2 fL (83.0-100.0); Mean Platelet Volume 10.8 fL (9.4-12.4); Monocytes # 0.5 K/mcL (0.0-1.3); Monocytes % 5.4 %; Platelet Count 121 K/mcL (140-400); Red Blood Count 3.35 M/mcL (4.19-5.50); Red Cell Distribution Width 12.9 % (11.5-14.5); Segmented Neutrophils % 87.8 %; White Blood Count 9.1 K/mcL (4.3-11.1)
[2021-07-13 07:16] LABS: Alanine Aminotransferase 3 Units/L (7-52); Albumin 2.8 g/dL (3.5-5.7); Albumin/Globulin Ratio 1.4 (1.1-2.2); Alkaline Phosphatase 51 Units/L (34-104); Aspartate Amino Transferase 14 Units/L (13-39); BUN/Creatinine Ratio 82 (6-26); Bilirubin,Total 0.6 mg/dL (0.3-1.0); Blood Urea Nitrogen 31 mg/dL (8-23); Calcium 8.3 mg/dL (8.6-10.3); Chloride 89 mEq/L (98-107); Glucose 116 mg/dL (70-105); Osmolality,Calculated 298 (280-300); Potassium 4.2 mEq/L (3.5-5.1); Sodium 140 mEq/L (136-145); Total Protein 4.8 g/dL (6.4-8.9); eGFR For African Americans > 60 (> 60); eGFR For Non-African Americans > 60 (> 60)
[2021-07-13 08:37] LABS: Carbon Dioxide > 45 mEq/L (23-29)
[2021-07-13] MEDS: Insulin LISPRO 300 UNITS/3 ML VIAL SUBQ SCH ×4 (08:54→22:13)
[2021-07-13] MEDS: Carbidopa/Levodopa 25/100 TABLET PO SCH ×3 (08:58→22:08)
[2021-07-13] MEDS: Aspirin 81 MG TAB.CHEW PO SCH (08:58)
[2021-07-13] MEDS: Sennosides 8.6 MG TABLET PO SCH (08:58)
[2021-07-13] MEDS: Furosemide 20 MG TABLET PO SCH (08:59)
[2021-07-13] MEDS: Melatonin 3 MG TABLET PO SCH (22:07)
[2021-07-13] MEDS: QUEtiapine Fumarate 25 MG TABLET PO SCH (22:08)
[2021-07-13] MEDS: Acetaminophen 325 MG TABLET PO PRN (22:08)
[2021-07-14] MEDS: Ipratropium 1 PUFF INHALER IH SCH ×4 (03:47→22:05)
[2021-07-14] MEDS: GuaiFENesin Liq 200 MG/10 ML UDC PO SCH ×4 (06:02→17:58)
[2021-07-14] MEDS: *HR* Enoxaparin 40 MG/0.4 ML SYRINGE SQ SCH (06:02)
[2021-07-14 06:54] LABS: Basophils % 0.2 %; Hematocrit 31.6 % (37.5-50.1); Hemoglobin 9.7 g/dL (12.9-16.9); Immature Granulocytes % 1.3 % (0-4); Lymphocytes # 0.5 K/mcL (0.6-4.6); Lymphocytes % 6.4 %; Mean Corpuscular HGB Conc 30.7 g/dL (31.6-35.5); Mean Corpuscular Hemoglobin 31.2 pg (28.0-33.3); Mean Corpuscular Volume 101.6 fL (83.0-100.0); Mean Platelet Volume 10.6 fL (9.4-12.4); Monocytes # 0.5 K/mcL (0.0-1.3); Monocytes % 5.6 %; Nucleated Red Blood Cells 0.2 /100 WBC (0); Platelet Count 127 K/mcL (140-400); Red Blood Count 3.11 M/mcL (4.19-5.50); Red Cell Distribution Width 13.2 % (11.5-14.5); Segmented Neutrophils % 86.5 %; White Blood Count 8.3 K/mcL (4.3-11.1)
[2021-07-14 06:56] LABS: Neutrophils # 7.2 K/mcL (1.6-8.9)
[2021-07-14 07:21] LABS: BUN/Creatinine Ratio 72 (6-26); Blood Urea Nitrogen 26 mg/dL (8-23); Calcium 8.1 mg/dL (8.6-10.3); Carbon Dioxide > 45 mEq/L (23-29); Chloride 91 mEq/L (98-107); Glucose 124 mg/dL (70-105); Osmolality,Calculated 296 (280-300); Potassium 4.2 mEq/L (3.5-5.1); Sodium 140 mEq/L (136-145); eGFR For African Americans > 60 (> 60); eGFR For Non-African Americans > 60 (> 60)
[2021-07-14] MEDS: Insulin LISPRO 300 UNITS/3 ML VIAL SUBQ SCH ×4 (08:21→17:57)
[2021-07-14] MEDS: Sennosides 8.6 MG TABLET PO SCH (09:09)
[2021-07-14] MEDS: Aspirin 81 MG TAB.CHEW PO SCH (09:09)
[2021-07-14] MEDS: Furosemide 20 MG TABLET PO SCH (09:09)
[2021-07-14] MEDS: Carbidopa/Levodopa 25/100 TABLET PO SCH ×3 (09:09→17:57)
[2021-07-14] MEDS: acetaZOLAMIDE 250 MG in Water for inj. (sterile) 2.5 ML IVP SCH (09:10)
[2021-07-14] MEDS: Fluconazole 100 MG TABLET PO SCH (12:45)
[2021-07-14 12:52] LABS: C-Reactive Protein 9 mg/L (Less than 10)
[2021-07-14] MEDS: QUEtiapine Fumarate 25 MG TABLET PO SCH (20:03)
[2021-07-14] MEDS: Melatonin 3 MG TABLET PO SCH (20:03)
[2021-07-15] MEDS: GuaiFENesin Liq 200 MG/10 ML UDC PO SCH ×5 (00:49→23:21)
[2021-07-15] MEDS: Carbidopa/Levodopa 25/100 TABLET PO SCH ×4 (00:49→23:21)
[2021-07-15] MEDS: Ipratropium 1 PUFF INHALER IH SCH ×4 (04:22→20:39)
[2021-07-15 05:12] LABS: Basophils % 0.4 %; Hematocrit 32.8 % (37.5-50.1); Hemoglobin 9.7 g/dL (12.9-16.9); Lymphocytes # 0.5 K/mcL (0.6-4.6); Mean Corpuscular HGB Conc 29.6 g/dL (31.6-35.5); Mean Corpuscular Hemoglobin 30.5 pg (28.0-33.3); Mean Corpuscular Volume 103.1 fL (83.0-100.0); Mean Platelet Volume 10.2 fL (9.4-12.4); Monocytes # 0.4 K/mcL (0.0-1.3); Monocytes % 4.6 %; Neutrophils # 7.4 K/mcL (1.6-8.9); Nucleated Red Blood Cells 0.5 /100 WBC (0); Platelet Count 116 K/mcL (140-400); Red Blood Count 3.18 M/mcL (4.19-5.50); Red Cell Distribution Width 12.8 % (11.5-14.5); White Blood Count 8.5 K/mcL (4.3-11.1)
[2021-07-15 05:38] LABS: BUN/Creatinine Ratio 60 (6-26); Blood Urea Nitrogen 24 mg/dL (8-23); Calcium 8.2 mg/dL (8.6-10.3); Carbon Dioxide > 45 mEq/L (23-29); Chloride 90 mEq/L (98-107); Glucose 148 mg/dL (70-105); Magnesium 1.9 mg/dL (1.6-2.6); Osmolality,Calculated 301 (280-300); Potassium 4.7 mEq/L (3.5-5.1); Sodium 142 mEq/L (136-145); eGFR For African Americans > 60 (> 60); eGFR For Non-African Americans > 60 (> 60)
[2021-07-15] MEDS: *HR* Enoxaparin 40 MG/0.4 ML SYRINGE SQ SCH (05:42)
[2021-07-15] MEDS: Insulin LISPRO 300 UNITS/3 ML VIAL SUBQ SCH ×4 (07:20→20:02)
[2021-07-15] MEDS: Furosemide 20 MG TABLET PO SCH ×2 (07:38→16:55)
[2021-07-15] MEDS: Sennosides 8.6 MG TABLET PO SCH (07:38)
[2021-07-15] MEDS: Aspirin 81 MG TAB.CHEW PO SCH (07:38)
[2021-07-15] MEDS: Fluconazole 100 MG TABLET PO SCH (07:38)
[2021-07-15] MEDS ORDERED: Furosemide 40 MG TABLET PO ONE (08:04)
[2021-07-15] MEDS ORDERED: Chloraseptic Spray 177 ML BOTTLE MM PRN (10:16)
[2021-07-15] MEDS: Scopolamine Patch 1.5 MG PATCH.TD72 TD SCH (12:28)
[2021-07-15] MEDS: QUEtiapine Fumarate 25 MG TABLET PO SCH (20:03)
[2021-07-15] MEDS: Melatonin 3 MG TABLET PO SCH (20:03)
[2021-07-15] MEDS: Haloperidol Lactate 5 MG/ML VIAL IVP PRN (23:21)
[2021-07-15] MEDS ORDERED: Dexmedetomidine HCl 400 MCG/100 ML MLS IVC SCH (23:45)
[2021-07-16 00:20] LABS: VBG HCO3 52 mEq/L (21-27); VBG PCO2 79 mmHg (41-51); VBG PH 7.43 pH Units (7.32-7.42); VBG PO2 182 mmHg (25-50)
[2021-07-16 02:48] LABS: Basophils % 0.3 %; Hematocrit 30.5 % (37.5-50.1); Hemoglobin 9.1 g/dL (12.9-16.9); Immature Granulocytes % 3.3 % (0-4); Lymphocytes # 0.4 K/mcL (0.6-4.6); Mean Corpuscular HGB Conc 29.8 g/dL (31.6-35.5); Mean Corpuscular Hemoglobin 30.4 pg (28.0-33.3); Mean Platelet Volume 10.4 fL (9.4-12.4); Monocytes # 0.4 K/mcL (0.0-1.3); Monocytes % 4.7 %; Neutrophils # 8.3 K/mcL (1.6-8.9); Nucleated Red Blood Cells 0.5 /100 WBC (0); Platelet Count 114 K/mcL (140-400); Red Blood Count 2.99 M/mcL (4.19-5.50); Red Cell Distribution Width 13.1 % (11.5-14.5); Segmented Neutrophils % 87.7 %; White Blood Count 9.5 K/mcL (4.3-11.1)
[2021-07-16 03:33] LABS: BUN/Creatinine Ratio 64 (6-26); Blood Urea Nitrogen 27 mg/dL (8-23); Calcium 7.8 mg/dL (8.6-10.3); Carbon Dioxide > 45 mEq/L (23-29); Chloride 87 mEq/L (98-107); Glucose 173 mg/dL (70-105); Magnesium 1.9 mg/dL (1.6-2.6); Osmolality,Calculated 301 (280-300); Potassium 3.9 mEq/L (3.5-5.1); Sodium 141 mEq/L (136-145); eGFR For African Americans > 60 (> 60); eGFR For Non-African Americans > 60 (> 60)
[2021-07-16] MEDS: Ipratropium 1 PUFF INHALER IH SCH ×4 (03:51→21:52)
[2021-07-16 04:34] LABS: ABG Base Excess 26 mEq/L (-2 to 3); ABG HCO3 55 mEq/L (21-27); ABG Oxygen Saturation 88 % (95-98); ABG PCO2 98 mmHg (35-45); ABG PH 7.36 pH Units (7.32-7.45); ABG PO2 63 mmHg (85-104); ABG TCO2 > 50 mEq/L (20-26)
[2021-07-16] MEDS: *HR* Enoxaparin 40 MG/0.4 ML SYRINGE SQ SCH (05:05)
[2021-07-16] MEDS: GuaiFENesin Liq 200 MG/10 ML UDC PO SCH ×4 (05:06→23:11)
[2021-07-16] MEDS: Insulin LISPRO 300 UNITS/3 ML VIAL SUBQ SCH ×4 (09:21→19:53)
[2021-07-16] MEDS: Aspirin 81 MG TAB.CHEW PO SCH (09:35)
[2021-07-16] MEDS: Furosemide 20 MG TABLET PO SCH ×2 (09:35→17:12)
[2021-07-16] MEDS: Sennosides 8.6 MG TABLET PO SCH (09:35)
[2021-07-16] MEDS: Carbidopa/Levodopa 25/100 TABLET PO SCH ×3 (09:36→23:11)
[2021-07-16] MEDS: Fluconazole 100 MG TABLET PO SCH (09:37)
[2021-07-16] MEDS: QUEtiapine Fumarate 25 MG TABLET PO SCH (19:54)
[2021-07-16] MEDS: Melatonin 3 MG TABLET PO SCH (19:54)
[2021-07-17 01:19] LABS: Basophils % 0.3 %; Hemoglobin 9.5 g/dL (12.9-16.9); Lymphocytes # 0.4 K/mcL (0.6-4.6); Lymphocytes % 4.1 %; Mean Corpuscular HGB Conc 29.7 g/dL (31.6-35.5); Mean Corpuscular Hemoglobin 30.3 pg (28.0-33.3); Mean Corpuscular Volume 101.9 fL (83.0-100.0); Mean Platelet Volume 10.3 fL (9.4-12.4); Monocytes # 0.3 K/mcL (0.0-1.3); Monocytes % 2.8 %; Neutrophils # 8.4 K/mcL (1.6-8.9); Nucleated Red Blood Cells 0.8 /100 WBC (0); Platelet Count 119 K/mcL (140-400); Red Blood Count 3.14 M/mcL (4.19-5.50); Red Cell Distribution Width 13.4 % (11.5-14.5); Segmented Neutrophils % 89.8 %; White Blood Count 9.3 K/mcL (4.3-11.1)
[2021-07-17 01:39] LABS: BUN/Creatinine Ratio 63 (6-26); Blood Urea Nitrogen 29 mg/dL (8-23); Calcium 7.9 mg/dL (8.6-10.3); Carbon Dioxide > 45 mEq/L (23-29); Chloride 84 mEq/L (98-107); Glucose 230 mg/dL (70-105); Osmolality,Calculated 305 (280-300); Potassium 4.1 mEq/L (3.5-5.1); Sodium 141 mEq/L (136-145); eGFR For African Americans > 60 (> 60); eGFR For Non-African Americans > 60 (> 60)
[2021-07-17] MEDS: Ipratropium 1 PUFF INHALER IH SCH ×4 (03:05→20:31)
[2021-07-17] MEDS: *HR* Enoxaparin 40 MG/0.4 ML SYRINGE SQ SCH (06:08)
[2021-07-17] MEDS: GuaiFENesin Liq 200 MG/10 ML UDC PO SCH ×4 (06:08→23:03)
[2021-07-17] MEDS: Sennosides 8.6 MG TABLET PO SCH (10:30)
[2021-07-17] MEDS: Carbidopa/Levodopa 25/100 TABLET PO SCH ×3 (10:30→23:03)
[2021-07-17] MEDS: Furosemide 20 MG TABLET PO SCH ×2 (10:30→17:02)
[2021-07-17] MEDS: Aspirin 81 MG TAB.CHEW PO SCH (10:30)
[2021-07-17] MEDS: Chloraseptic Spray 177 ML BOTTLE MM SCH ×4 (10:31→20:00)
[2021-07-17] MEDS: Insulin LISPRO 300 UNITS/3 ML VIAL SUBQ SCH ×4 (10:31→20:03)
[2021-07-17] MEDS: Dexamethasone Sodium Phos/PF 10 MG/ML VIAL IVP SCH (10:31)
[2021-07-17] MEDS: acetaZOLAMIDE 250 MG in Water for inj. (sterile) 2.5 ML IVP SCH (12:22)
[2021-07-17] MEDS: Melatonin 3 MG TABLET PO SCH (19:59)
[2021-07-17] MEDS: QUEtiapine Fumarate 25 MG TABLET PO SCH (19:59)
[2021-07-17] MEDS: Saline Nasal Spray 44 ML BOTTLE NS PRN (20:01)
[2021-07-18] MEDS: Ipratropium 1 PUFF INHALER IH SCH ×4 (03:58→22:20)
[2021-07-18] MEDS: *HR* Enoxaparin 40 MG/0.4 ML SYRINGE SQ SCH (05:37)
[2021-07-18] MEDS: GuaiFENesin Liq 200 MG/10 ML UDC PO SCH ×4 (05:37→23:45)
[2021-07-18] MEDS: Aspirin 81 MG TAB.CHEW PO SCH (09:02)
[2021-07-18] MEDS: Carbidopa/Levodopa 25/100 TABLET PO SCH ×3 (09:03→23:49)
[2021-07-18] MEDS: Dexamethasone Sodium Phos/PF 10 MG/ML VIAL IVP SCH (09:03)
[2021-07-18] MEDS: Furosemide 20 MG TABLET PO SCH ×2 (09:03→17:42)
[2021-07-18] MEDS: Sennosides 8.6 MG TABLET PO SCH (09:03)
[2021-07-18] MEDS: Insulin LISPRO 300 UNITS/3 ML VIAL SUBQ SCH ×4 (09:05→23:54)
[2021-07-18] MEDS: Chloraseptic Spray 177 ML BOTTLE MM SCH ×4 (09:06→23:45)
[2021-07-18 11:10] LABS: Basophils % 0.3 %; Eosinophils % 0.1 %; Hematocrit 36.8 % (37.5-50.1); Immature Granulocytes % 2.4 % (0-4); Lymphocytes # 0.5 K/mcL (0.6-4.6); Lymphocytes % 4.2 %; Mean Corpuscular HGB Conc 29.9 g/dL (31.6-35.5); Mean Corpuscular Hemoglobin 31.4 pg (28.0-33.3); Mean Corpuscular Volume 105.1 fL (83.0-100.0); Mean Platelet Volume 10.4 fL (9.4-12.4); Monocytes # 0.4 K/mcL (0.0-1.3); Monocytes % 3.7 %; Neutrophils # 10.2 K/mcL (1.6-8.9); Nucleated Red Blood Cells 1.4 /100 WBC (0); Platelet Count 141 K/mcL (140-400); Red Cell Distribution Width 13.9 % (11.5-14.5); Segmented Neutrophils % 89.3 %; White Blood Count 11.4 K/mcL (4.3-11.1)
[2021-07-18] MEDS: Scopolamine Patch 1.5 MG PATCH.TD72 TD SCH (11:39)
[2021-07-18 11:47] LABS: BUN/Creatinine Ratio 70 (6-26); Blood Urea Nitrogen 32 mg/dL (8-23); Calcium 8.9 mg/dL (8.6-10.3); Carbon Dioxide > 45 mEq/L (23-29); Chloride 85 mEq/L (98-107); Glucose 201 mg/dL (70-105); Osmolality,Calculated 303 (280-300); Sodium 140 mEq/L (136-145); eGFR For African Americans > 60 (> 60); eGFR For Non-African Americans > 60 (> 60)
[2021-07-18] MEDS: QUEtiapine Fumarate 25 MG TABLET PO SCH (23:46)
[2021-07-18] MEDS: Melatonin 3 MG TABLET PO SCH (23:46)
[2021-07-19] MEDS: Ipratropium 1 PUFF INHALER IH SCH ×4 (03:39→20:12)
[2021-07-19] MEDS: Aspirin 81 MG TAB.CHEW PO SCH (07:49)
[2021-07-19] MEDS: *HR* Enoxaparin 40 MG/0.4 ML SYRINGE SQ SCH (07:49)
[2021-07-19] MEDS: Sennosides 8.6 MG TABLET PO SCH (07:49)
[2021-07-19] MEDS: Furosemide 20 MG TABLET PO SCH ×2 (07:49→18:53)
[2021-07-19] MEDS: GuaiFENesin Liq 200 MG/10 ML UDC PO SCH ×4 (07:50→23:15)
[2021-07-19] MEDS: Chloraseptic Spray 177 ML BOTTLE MM SCH ×4 (07:51→23:16)
[2021-07-19] MEDS: Carbidopa/Levodopa 25/100 TABLET PO SCH ×3 (07:55→23:16)
[2021-07-19] MEDS: Insulin LISPRO 300 UNITS/3 ML VIAL SUBQ SCH ×4 (09:08→23:18)
[2021-07-19 20:16] LABS: Basophils % 0.3 %; Hemoglobin 11.2 g/dL (12.9-16.9); Lymphocytes # 0.5 K/mcL (0.6-4.6); Mean Corpuscular HGB Conc 30.3 g/dL (31.6-35.5); Mean Corpuscular Hemoglobin 31.5 pg (28.0-33.3); Mean Corpuscular Volume 104.2 fL (83.0-100.0); Mean Platelet Volume 10.3 fL (9.4-12.4); Monocytes # 0.5 K/mcL (0.0-1.3); Monocytes % 4.5 %; Neutrophils # 8.8 K/mcL (1.6-8.9); Nucleated Red Blood Cells 0.4 /100 WBC (0); Platelet Count 141 K/mcL (140-400); Red Blood Count 3.55 M/mcL (4.19-5.50); Red Cell Distribution Width 14.2 % (11.5-14.5); Segmented Neutrophils % 88.2 %
[2021-07-19 20:55] LABS: BUN/Creatinine Ratio 81 (6-26); Blood Urea Nitrogen 34 mg/dL (8-23); Calcium 8.7 mg/dL (8.6-10.3); Carbon Dioxide > 45 mEq/L (23-29); Chloride 82 mEq/L (98-107); Glucose 184 mg/dL (70-105); Osmolality,Calculated 302 (280-300); Potassium 4.4 mEq/L (3.5-5.1); Sodium 140 mEq/L (136-145); eGFR For African Americans > 60 (> 60); eGFR For Non-African Americans > 60 (> 60)
[2021-07-19] MEDS: QUEtiapine Fumarate 25 MG TABLET PO SCH (23:15)
[2021-07-19] MEDS: Melatonin 3 MG TABLET PO SCH (23:16)
[2021-07-20] MEDS: Haloperidol Lactate 5 MG/ML VIAL IVP PRN ×2 (03:27→23:33)
[2021-07-20] MEDS: Acetaminophen 325 MG TABLET PO PRN (03:28)
[2021-07-20] MEDS: Ipratropium 1 PUFF INHALER IH SCH ×4 (04:07→20:49)
[2021-07-20] MEDS: GuaiFENesin Liq 200 MG/10 ML UDC PO SCH ×3 (07:59→18:54)
[2021-07-20] MEDS: Aspirin 81 MG TAB.CHEW PO SCH (07:59)
[2021-07-20] MEDS: Carbidopa/Levodopa 25/100 TABLET PO SCH ×3 (08:00→23:30)
[2021-07-20] MEDS: Sennosides 8.6 MG TABLET PO SCH (08:00)
[2021-07-20] MEDS: *HR* Enoxaparin 40 MG/0.4 ML SYRINGE SQ SCH (08:01)
[2021-07-20] MEDS: Furosemide 20 MG TABLET PO SCH ×2 (08:01→17:16)
[2021-07-20] MEDS: Insulin LISPRO 300 UNITS/3 ML VIAL SUBQ SCH ×4 (08:07→23:32)
[2021-07-20] MEDS: Chloraseptic Spray 177 ML BOTTLE MM SCH ×4 (09:50→23:30)
[2021-07-20] MEDS ORDERED: Furosemide 20 MG TABLET PO ONE (11:14)
[2021-07-20] MEDS: Melatonin 3 MG TABLET PO SCH (23:30)
[2021-07-20] MEDS: QUEtiapine Fumarate 25 MG TABLET PO SCH (23:30)
[2021-07-21 02:22] LABS: Basophils % 0.3 %; Eosinophils # 0.1 K/mcL (0.0-0.6); Eosinophils % 0.7 %; Hematocrit 34.3 % (37.5-50.1); Hemoglobin 10.3 g/dL (12.9-16.9); Immature Granulocytes % 1.5 % (0-4); Lymphocytes # 0.6 K/mcL (0.6-4.6); Lymphocytes % 8.4 %; Mean Corpuscular Hemoglobin 30.4 pg (28.0-33.3); Mean Corpuscular Volume 101.2 fL (83.0-100.0); Mean Platelet Volume 10.2 fL (9.4-12.4); Monocytes # 0.4 K/mcL (0.0-1.3); Monocytes % 5.5 %; Neutrophils # 5.7 K/mcL (1.6-8.9); Platelet Count 124 K/mcL (140-400); Red Blood Count 3.39 M/mcL (4.19-5.50); Red Cell Distribution Width 14.2 % (11.5-14.5); Segmented Neutrophils % 83.6 %; White Blood Count 6.8 K/mcL (4.3-11.1)
[2021-07-21 02:39] LABS: BUN/Creatinine Ratio 78 (6-26); Blood Urea Nitrogen 21 mg/dL (8-23); Calcium 8.7 mg/dL (8.6-10.3); Carbon Dioxide > 45 mEq/L (23-29); Chloride 84 mEq/L (98-107); Glucose 106 mg/dL (70-105); Osmolality,Calculated 291 (280-300); Potassium 4.2 mEq/L (3.5-5.1); Sodium 139 mEq/L (136-145); eGFR For African Americans > 60 (> 60); eGFR For Non-African Americans > 60 (> 60)
[2021-07-21 02:39] LABS: VBG HCO3 52 mEq/L (21-27); VBG PCO2 79 mmHg (41-51); VBG PH 7.43 pH Units (7.32-7.42); VBG PO2 122 mmHg (25-50)
[2021-07-21] MEDS: GuaiFENesin Liq 200 MG/10 ML UDC PO SCH ×3 (03:30→11:17)
[2021-07-21] MEDS: Ipratropium 1 PUFF INHALER IH SCH ×2 (03:42→09:56)
[2021-07-21] MEDS: *HR* Enoxaparin 40 MG/0.4 ML SYRINGE SQ SCH (05:39)
[2021-07-21] MEDS: Acetaminophen 325 MG TABLET PO PRN (05:40)
[2021-07-21] MEDS ORDERED: acetaZOLAMIDE 250 MG in Water for inj. (sterile) 2.5 ML IVP SCH (06:00)
[2021-07-21] MEDS: Carbidopa/Levodopa 25/100 TABLET PO SCH (08:34)
[2021-07-21] MEDS: Furosemide 20 MG TABLET PO SCH (08:34)
[2021-07-21] MEDS: Aspirin 81 MG TAB.CHEW PO SCH (08:34)
[2021-07-21] MEDS: Sennosides 8.6 MG TABLET PO SCH (08:34)
[2021-07-21] MEDS: Insulin LISPRO 300 UNITS/3 ML VIAL SUBQ SCH ×2 (08:35→12:05)
[2021-07-21] MEDS: Chloraseptic Spray 177 ML BOTTLE MM SCH ×2 (08:44→12:06)
[2021-07-21] MEDS: Scopolamine Patch 1.5 MG PATCH.TD72 TD SCH (12:06)
[2021-07-21 12:17] VITALS: BP 126/71; PULSE 100; TEMP 97.8; O2SAT 92
== END 2021-07-21 15:21 | DRG 208 ==
LOC: EMEROOARM 16:44 → 3ANU 16:44 → SUATTDRO 20:22 → 3ANU 21:34 → SUATTDRO 06-16 13:07 → 3ANU 06-20 14:40 → 2NNU 06-23 02:58 → ICNU 06-23 21:31 → 2NENU 06-27 07:16
PROVIDERS: ADMIT Internal Medicine; ATTEND Internal Medicine